=== PATIENT | female | born 1940 | race Caucasian/White ===

== ENCOUNTER 2020-11-13 05:27 | Inpatient (IN) ==
[2020-11-13] MEDS ORDERED: ACETAMINOPHEN 500 MG TAB PO STA (05:38)
[2020-11-13] MEDS ORDERED: LIDOCAINE 5% 1 PATCH TD STA (05:38)
--- NOTE | 2020-11-13 05:45 | Emergency Department Note ---
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 space occupying lesions are seen. Tellez-white matter differentiation is preserved. 1.2 x 0.7 cm slightly hyperattenuating asymmetrical lesion is seen within right basal ganglia (series 2 image 16). Mild diffuse atrophic changes of brain parenchyma are seen. Prominent hyperostosis of the calvarium seen. No definite acute depressed skull fractures demonstrated. Visualized paranasal sinuses and mastoid air cells are patent and well-aerated. IMPRESSION: No definite acute intracranial hemorrhage, no midline shift or space occupying lesions. Questionable hyperattenuating lesion at the right basal ganglia, incompletely evaluated on this exam. Further evaluation with MRI of the brain is suggested. Atrophic changes of brain parenchyma. Prominent cranial hyperostosis, most likely benign however sometimes this condition could be associated with systemic disease. ACT 112: Negative or not required by law. The above report was generated using voice recognition software. It may contain grammatical, syntax or spelling errors. Electronically signed by: Mariah German DO 11/13/2020 7:35 AM Discharge Plan Visit Data Chief Complaint: Rib Injury/Pain Stated Complaint: ABDOMINAL PAIN ED Provider: Reggie Dotson Discharge Problem: Abdominal pain, acute, right upper quadrant, Elev transaminase/LDH, Metastatic disease Patient Disposition: Admitted As Inpatient Discharge Instructions Interventions: ED Discharge Assessment Last Done: 11/13/20 09:48
[2020-11-13] MEDS ORDERED: SODIUM CHLORIDE 0.9% 1000ML 500 ML IV ONE (05:53)
[2020-11-13 06:28] LABS: iSTAT Creatinine 0.6 mg/dl (0.6-1.3); iSTAT Hemoglobin 10.9 g/dl (12.0-16.0); iSTAT Ionized Calcium 1.25 mmol/l (1.12-1.32); iSTAT Potassium 4.1 mmol/L (3.3-5.0)
[2020-11-13 06:35] LABS: Basophils # (auto) 0.03 K/uL (0-0.2); Basophils % (auto) 0.3 %; Eosinophils # (auto) 0.06 K/uL (0-0.5); Eosinophils % (auto) 0.5 %; Hemoglobin 11.5 g/dL (12.0-16.0); Immature Granulocytes # (auto) 0.09 K/uL (0.00-0.02); Immature Granulocytes % (auto) 0.8 %; Lymphocytes # (auto) 1.07 K/uL (1.2-3.4); Lymphocytes % (auto) 9.1 %; Mean Corpuscular Hemoglobin 30.3 pg (25-34); Mean Corpuscular Hgb Conc 32.9 g/dL (32-36); Mean Corpuscular Volume 92.3 fL (80-100); Mean Platelet Volume 9.6 fL (7.4-10.4); Monocytes # (auto) 1.18 K/uL (0.11-0.59); Neutrophils # (auto) 9.39 K/uL (1.4-6.5); Neutrophils % (auto) 79.3 %; Platelet Count 526 K/uL (130-400); RDW Coefficient of Variation 12.8 % (11.5-14.5); RDW Standard Deviation 43.3 fL (36.4-46.3); Red Blood Count 3.79 M/uL (4.2-5.4); White Blood Count 11.82 K/uL (4.8-10.8)
[2020-11-13] MEDS ORDERED: OPTIRAY 320 100ml IV ONE (06:42)
[2020-11-13 06:47] LABS: Partial Thromboplastin Ratio 0.9; Partial Thromboplastin Time 24.3 Seconds (21.0-31.0)
[2020-11-13] MEDS ORDERED: OPTIRAY 350 500ml IV ONE (06:49)
[2020-11-13 06:53] LABS: Alanine Aminotransferase 546 U/L (12-78); Albumin Level 2.8 gm/dl (3.4-5.0); Aspartate Aminotransferase 278 U/L (15-37); BUN Creatinine Ratio 16.2 (10-20); Blood Urea Nitrogen 11 mg/dl (7-18); Calcium 9.9 mg/dl (8.5-10.1); Carbon Dioxide 28 mmol/L (21-32); Chloride 100 mmol/L (98-107); Creatinine Clr Calc Pharmacy 60.9 ml/min; Est GFR (African American) 94.8 ml/min; Est GFR (Non-African American) 81.8 ml/min; Glucose 104 mg/dl (70-99); Lipase 318 U/L (73-393); Sodium 133 mmol/L (136-145)
[2020-11-13 06:58] LABS: Albumin Globulin Ratio 0.7 (0.9-2); Alkaline Phosphatase 538 U/L (45-117); Bilirubin,Total 1.3 mg/dl (0.2-1); Creatine Kinase 64 U/L (26-192); Creatine Kinase MB < 1.0 ng/ml (0.5-3.6); Globulin 4.3 gm/dl (2.5-4.0); Total Protein 7.1 gm/dl (6.4-8.2); Troponin I < 0.015 ng/ml (0-0.045)
--- NOTE | 2020-11-13 07:09 | CT Scan Report ---
CT ANGIOGRAPHY OF THE CHEST, PULMONARY EMBOLUS PROTOCOL CLINICAL HISTORY: Chest Pain, eval for PE COMPARISON STUDY: Chest CT August 04, 2007. TECHNIQUE: Following IV administration of 116 mL of Optiray, helical axial images of the chest were o btained utilizing the pulmonary embolus protocol. Maximal intensity projections and sagittal and cor onal reformats were viewed on an independent 3D workstation. IV contrast was administered without co mplication. Automated exposure control was utilized for the study. A dose lowering technique was ut ilized adhering to the principles of ALARA. FINDINGS: No pulmonary emboli are identified. There is no thoracic aortic dissection. Moderate cardi omegaly is noted. There is no pericardial effusion. There is an enlarged left upper mediastinal lymph node on axial image 231 of that measures 1.4 cm. There is no pneumothorax. There is no consolidation to suggest pneumonia. A 7 mm lingular nodule on image [address] of August 04, 2007. Subpl eural opacities favor atelectasis. Note is made of numerous lytic lesions within the bony thorax, inc luding a 2.4 cm lesion within the left fifth rib. A lytic lesion within the inferior right scapula is noted. There is a lytic lesion within the left aspect of the T7 vertebral body. The abdomen and pelv is will be reported separately. The study better depicted in multiple hepatic masses. There are promi nent cardiophrenic angle lymph nodes. IMPRESSION: 1. No pulmonary emboli identified. 2. Multiple hepatic masses consistent with a neoplastic process, better depicted on the CT of the abd omen and pelvis which will be reported separately. Numerous lytic skeletal metastases, a 7 mm lingula r metastasis and a pathologic left superior mediastinal lymph node. ACT 112: Negative or not required by law. Electronically signed by: Braden Andersen M.D. 11/13/2020 7:07 AM
--- NOTE | 2020-11-13 07:26 | CT Scan Report ---
CT OF THE ABDOMEN AND PELVIS WITH CONTRAST CLINICAL HISTORY: Right upper quadrant abdominal pain. COMPARISON STUDY: None. TECHNIQUE: Following IV administration of 116 mL of Optiray, axial images of the abdomen and pelvis w ere obtained from the lung bases to the proximal femurs. Images were reviewed in the axial, sagittal, and coronal planes. IV contrast was administered without complication. Automated exposure control w as utilized for the study. A dose lowering technique was utilized adhering to the principles of SUZE Sanders. CT DOSE: 1881.01 mGy.cm FINDINGS: A 7 mm lingular nodule is noted. No pneumatosis, free air or portal venous gas is present. There is trace perihepatic ascites. Note is made of a large hypodense mass centered within the anteri or segment of the right hepatic lobe and the medial segment of the left hepatic lobe that measures 8. 5 x 7.2 cm. There are numerous smaller satellite lesions. Note is made of moderate intrahepatic bilia ry ductal dilatation, greater within the left hepatic lobe. There is a 4 mm calculus within the dista l common bile duct. There is no pancreatic ductal dilatation. There is narrowing of the portal vein w hich remains patent. Numerous partially necrotic portacaval and gayatri hepatis lymph nodes are noted. There are also multiple pathologic retroperitoneal lymph nodes. There are gallstones within the gallb ladder. The spleen and adrenal glands are unremarkable. A 7 mm cystic lesion within the uncinate proc ess of the pancreas is noted. There is no hydronephrosis. There is no evidence for a bowel obstructio n. There is a small cyst within the right ovary. There is mild wall thickening of the anterior bladde r. There is no evidence for acute appendicitis. Multiple lytic skeletal lesions are noted, including a lytic lesion within the right ischial tuberosity as well as a 2.2 cm lytic lesion within the right iliac bone. IMPRESSION: 1. Large hypodense hepatic mass, measuring 8.5 x 7.2 cm, with numerous satellite lesions. 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 Moderate in trahepatic biliary ductal dilatation, greater within the left hepatic lobe. 2. Numerous pathologic lymph nodes and lytic skeletal metastases, as described above. 3. 4 mm calculus within the distal common bile duct. 4. Cholelithiasis. ACT 112: Negative or not required by law. Electronically signed by: Braden Andersen M.D. 11/13/2020 7:25 AM
--- NOTE | 2020-11-13 07:36 | CT Scan Report ---
CT head/brain wo con CLINICAL HISTORY: Pt c/o AMS COMPARISON STUDY: No previous studies for comparison. TECHNIQUE: Axial CT of the brain is performed from the vertex to the skull base. IV contrast was not administered for this examination. A dose lowering technique was utilized adhering to the principles of ALARA. CT DOSE: FINDINGS: No definite acute intracranial hemorrhage, no midline shift or space occupying lesions are seen. Tellez-white matter differentiation is preserved. 1.2 x 0.7 cm slightly hyperattenuating asymmetrical lesion is seen within right basal ganglia (series 2 image 16). Mild diffuse atrophic changes of brain parenchyma are seen. Prominent hyperostosis of the calvarium seen. No definite acute depressed skull fractures demonstrate d. Visualized paranasal sinuses and mastoid air cells are patent and well-aerated. IMPRESSION: No definite acute intracranial hemorrhage, no midline shift or space occupying lesions. Questionable hyperattenuating lesion at the right basal ganglia, incompletely evaluated on this exam. Further evaluation with MRI of the brain is suggested. Atrophic changes of brain parenchyma. Prominent cranial hyperostosis, most likely benign however sometimes this condition could be associat ed with systemic disease. ACT 112: Negative or not required by law. The above report was generated using voice recognition software. It may contain grammatical, syntax o r spelling errors. Electronically signed by: Mariah German DO 11/13/2020 7:35 AM
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
--- NOTE | 2020-11-13 09:54 | Gastrointestinal Consultation ---
Date of Consultation November 13, 2020 Assessment & Plan (1) Common bile duct stone: 80 year old female w/ RUQ pain, weight loss and food aversion w/ large hepatic mass w/ pathologic lymph nodes and lytic skeletal metastases concerning for liver primary with metastatic disease. CT also raising concern for retained biliary stones Proceed with admission Clear liquids today Please start Cipro prophylaxis (I had issues placing orders as chart is in transfer mode) NPO after midnight for EUS/ERCP IV analgesia IV maintenance fluids (2) Liver mass: Supervising Physician Co-Signing Physician Notes I saw and evaluated the patient in the emergency room. We were consulted for history of abdominal pain and abnormal imaging. The patient notes that she has had worsening symptoms over the past 1 to 2 weeks. Imaging shows a couple interesting findings to include a common bile duct stone in addition to numerous hepatic masses of unclear etiology. The patient does report having a prior colonoscopy but does not recall the date. Physical examination Elderly appearing female in no obvious distress Mild right upper quadrant tenderness Impression: Patient presenting for evaluation of symptoms related to choledocholithiasis. In addition she appears to have numerous masses within the liver. Given this we will proceed with ERCP for stone removal and endoscopic ultrasound to sample of the liver masses. I have discussed the risks and benefits of the procedures with the patient to include bleeding, infection, perforation, pancreatitis, failed biliary cannulation, insufficient cellularity, and need for follow-up studies. We will try to make arrangements for the procedures while the patient is in the hospital. History of Present Illness Reason for Consultation: liver mass Requesting Physician: Gary Attending Physician: Gary History of Present Illness 80 year old female with history of HTN, dyslipidemia and alzhemiers who was admitted through the EDwith RUQ pain ongoing fo about 1-3 weeks. Pt was seen and evaluated, chart reviewed. Family at bedside. Pt is a vague historian. Notes unintentional weight loss without GI discomfort for about 3/4 months but in the last month has had quicker weight loss, abd pain and decreased appetite. Currently pain is resolved. Denies nausea/vomiting. No GERD. Denies dysphagia. Bowels unchanged. No black or bloody stools. No fever, chills, CP, SOB. CTAP concerning for a large 8cm hepatic mass, pathologic lymph nodes and lytic skeletal metastases and CBD stone Head CT concerning for possible lesion at R basal ganglia recommending MRI. 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 HLD (hyperlipidemia) Hypertension Mild cognitive impairment Surgical History History of History of cataract extraction with lens replacement History of surgery on wrist History of tonsillectomy and adenoidectomy Family History Father Alzheimer disease Coronary heart disease Myocardial infarction, Onset Age: 70 PVD (peripheral vascular disease) with claudication Mother Dementia Smoker Social History Smoking Status: Never smoker Second Hand Exposure: No; Do You Dip or Chew Tobacco: No; Tobacco Cessation Education Requested by Patient: No Hx Alcohol Use: Yes Alcohol type: wine Hx Substance Use: No Preferred Language: Romanian Communication Ability: Effective Hearing Ability: Normal Stone Rougher Required: No Beliefs That Will Affect Care: None marital status: Current Living Situation: Spouse current occupational status: retired Other Information That Helps Us Care for You: No Feels Safe at Home: Yes Safety Concerns: Feels Safe At This Time Assistive Devices: Glasses Review of Systems Review of Systems: All systems reviewed & are unremarkable except as noted in HPI & below Physical Exam Constitutional: WD/WN, vitals as above Neck: trachea midline, no thyromegaly Respiratory: normal respiratory effort, lungs clear to auscultation Cardiovascular: RRR, no murmur, no edema Gastrointestinal (Abdomen): normal bowel sounds, soft, nontender, no hepatosplenomegaly Skin: no rashes, warm and dry Results & Data ([facility]) Vital Signs (Past 12 Hours) Vital Signs Temp Pulse Pulse Resp BP BP Pulse Ox 11/13/20 08:00 82 18 117/64 98 11/13/20 06:46 85 16 136/74 98 11/13/20 06:16 81 16 97 11/13/20 05:38 37.1 C 94 H 18 149/80 H 97 Laboratory Results 11/13/20 11/13/20 11/13/20 Range/Units 08:57 07:05 06:15 WBC (4.8-10.8) K/uL RBC (4.2-5.4) M/uL Hgb (12.0-16.0) g/dL POC Hgb 10.9 L (12.0-16.0) g/dl Hct (37-47) % POC Hct 32 L (37-47) % MCV (80-100) fL MCH (25-34) pg MCHC (32-36) g/dL RDW Std Deviation (36.4-46.3) fL RDW Coeff of Rhianna (11.5-14.5) % Plt Count (130-400) K/uL MPV (7.4-10.4) fL Immature Gran % (Auto) % Neut % (Auto) % Lymph % (Auto) % [place] % (Auto) % Eos % (Auto) % Baso % (Auto) % Neut # (Auto) (1.4-6.5) K/uL Lymph # (Auto) (1.2-3.4) K/uL [place] # (Auto) (0.11-0.59) K/uL Eos # (Auto) (0-0.5) K/uL Baso # (Auto) (0-0.2) K/uL Immature Gran # (Auto) (0.00-0.02) K/uL APTT (21.0-31.0) Seconds PTT Ratio POC Sodium 133 L (135-144) mmol/L Sodium (136-145) mmol/L POC Potassium 4.1 (3.3-5.0) mmol/L Potassium (3.5-5.1) mmol/L POC Chloride 96 L (101-112) mmol/L Chloride (98-107) mmol/L Carbon Dioxide (21-32) mmol/L POC Total CO2 24 (24-31) mmol/L Anion Gap (3-11) POC Anion Gap 17.0 (16-25) mmol/L POC BUN 12 (7-18) mg/dl BUN (7-18) mg/dl Creatinine (0.6-1.2) mg/dl POC Creatinine 0.6 (0.6-1.3) mg/dl Est Cr Clr Drug Dosing ml/min Est GFR ( Amer) ml/min Est GFR (Non-Af Amer) ml/min BUN/Creatinine Ratio (10-20) Glucose (70-99) mg/dl POC Glucose (other) 111 H (70-99) mg/dl Lactate 1.9 (0.4-2.0) mmol/L Calcium (8.5-10.1) mg/dl POC Ioniz Calcium Frandy 1.25 (1.12-1.32) mmol/l Total Bilirubin (0.2-1) mg/dl AST (15-37) U/L ALT (12-78) U/L Alkaline Phosphatase (45-117) U/L Total Creatine Kinase (26-192) U/L CK-MB (CK-2) (0.5-3.6) ng/ml CK/CKMB % Calc Troponin I (0-0.045) ng/ml Total Protein (6.4-8.2) gm/dl Albumin (3.4-5.0) gm/dl Globulin (2.5-4.0) gm/dl Albumin/Globulin Ratio (0.9-2) Lipase (73-393) U/L Procalcitonin 0.22 (0-0.5) ng/ml COVID-19 Eval Order SARS-CoV-2 (PCR) (Negative) Hepatitis A IgM Ab Hep Bs Antigen Hep B Core IgM Ab Hepatitis C Antibody 11/13/20 11/13/20 11/13/20 Range/Units 06:14 06:14 05:58 WBC (4.8-10.8) K/uL RBC (4.2-5.4) M/uL Hgb (12.0-16.0) g/dL POC Hgb (12.0-16.0) g/dl Hct (37-47) % POC Hct (37-47) % MCV (80-100) fL MCH (25-34) pg MCHC (32-36) g/dL RDW Std Deviation (36.4-46.3) fL RDW Coeff of Rhianna (11.5-14.5) % Plt Count (130-400) K/uL MPV (7.4-10.4) fL Immature Gran % (Auto) % Neut % (Auto) % Lymph % (Auto) % [place] % (Auto) % Eos % (Auto) % Baso % (Auto) % Neut # (Auto) (1.4-6.5) K/uL Lymph # (Auto) (1.2-3.4) K/uL [place] # (Auto) (0.11-0.59) K/uL Eos # (Auto) (0-0.5) K/uL Baso # (Auto) (0-0.2) K/uL Immature Gran # (Auto) (0.00-0.02) K/uL APTT (21.0-31.0) Seconds PTT Ratio POC Sodium (135-144) mmol/L Sodium (136-145) mmol/L POC Potassium (3.3-5.0) mmol/L Potassium (3.5-5.1) mmol/L POC Chloride (101-112) mmol/L Chloride (98-107) mmol/L Carbon Dioxide (21-32) mmol/L POC Total CO2 (24-31) mmol/L Anion Gap (3-11) POC Anion Gap (16-25) mmol/L POC BUN (7-18) mg/dl BUN (7-18) mg/dl Creatinine (0.6-1.2) mg/dl POC Creatinine (0.6-1.3) mg/dl Est Cr Clr Drug Dosing ml/min Est GFR ( Amer) ml/min Est GFR (Non-Af Amer) ml/min BUN/Creatinine Ratio (10-20) Glucose (70-99) mg/dl POC Glucose (other) (70-99) mg/dl Lactate (0.4-2.0) mmol/L Calcium (8.5-10.1) mg/dl POC Ioniz Calcium Frandy (1.12-1.32) mmol/l Total Bilirubin (0.2-1) mg/dl AST (15-37) U/L ALT (12-78) U/L Alkaline Phosphatase (45-117) U/L Total Creatine Kinase (26-192) U/L CK-MB (CK-2) (0.5-3.6) ng/ml CK/CKMB % Calc Troponin I (0-0.045) ng/ml Total Protein (6.4-8.2) gm/dl Albumin (3.4-5.0) gm/dl Globulin (2.5-4.0) gm/dl Albumin/Globulin Ratio (0.9-2) Lipase (73-393) U/L Procalcitonin (0-0.5) ng/ml COVID-19 Eval Order Covid19 at [facility] SARS-CoV-2 (PCR) NEGATIVE (Negative) Hepatitis A IgM Ab Pending Hep Bs Antigen Hep B Core IgM Ab Pending Hepatitis C Antibody 11/13/20 11/13/20 11/13/20 Range/Units 05:58 05:58 05:58 WBC (4.8-10.8) K/uL RBC (4.2-5.4) M/uL Hgb (12.0-16.0) g/dL POC Hgb (12.0-16.0) g/dl Hct (37-47) % POC Hct (37-47) % MCV (80-100) fL MCH (25-34) pg MCHC (32-36) g/dL RDW Std Deviation (36.4-46.3) fL RDW Coeff of Rhianna (11.5-14.5) % Plt Count (130-400) K/uL MPV (7.4-10.4) fL Immature Gran % (Auto) % Neut % (Auto) % Lymph % (Auto) % [place] % (Auto) % Eos % (Auto) % Baso % (Auto) % Neut # (Auto) (1.4-6.5) K/uL Lymph # (Auto) (1.2-3.4) K/uL [place] # (Auto) (0.11-0.59) K/uL Eos # (Auto) (0-0.5) K/uL Baso # (Auto) (0-0.2) K/uL Immature Gran # (Auto) (0.00-0.02) K/uL APTT 24.3 (21.0-31.0) Seconds PTT Ratio 0.9 POC Sodium (135-144) mmol/L Sodium 133 L (136-145) mmol/L POC Potassium (3.3-5.0) mmol/L Potassium 4.0 (3.5-5.1) mmol/L POC Chloride (101-112) mmol/L Chloride 100 (98-107) mmol/L Carbon Dioxide 28 (21-32) mmol/L POC Total CO2 (24-31) mmol/L Anion Gap 5.0 (3-11) POC Anion Gap (16-25) mmol/L POC BUN (7-18) mg/dl BUN 11 (7-18) mg/dl Creatinine 0.70 (0.6-1.2) mg/dl POC Creatinine (0.6-1.3) mg/dl Est Cr Clr Drug Dosing 60.9 ml/min Est GFR ( Amer) 94.8 ml/min Est GFR (Non-Af Amer) 81.8 ml/min BUN/Creatinine Ratio 16.2 (10-20) Glucose 104 H (70-99) mg/dl POC Glucose (other) (70-99) mg/dl Lactate (0.4-2.0) mmol/L Calcium 9.9 (8.5-10.1) mg/dl POC Ioniz Calcium Frandy (1.12-1.32) mmol/l Total Bilirubin 1.3 H (0.2-1) mg/dl AST 278 H (15-37) U/L ALT 546 H (12-78) U/L Alkaline Phosphatase 538 H (45-117) U/L Total Creatine Kinase 64 (26-192) U/L CK-MB (CK-2) < 1.0 (0.5-3.6) ng/ml CK/CKMB % Calc TNP Troponin I < 0.015 (0-0.045) ng/ml Total Protein 7.1 (6.4-8.2) gm/dl Albumin 2.8 L (3.4-5.0) gm/dl Globulin 4.3 H (2.5-4.0) gm/dl Albumin/Globulin Ratio 0.7 L (0.9-2) Lipase 318 (73-393) U/L Procalcitonin (0-0.5) ng/ml COVID-19 Eval Order SARS-CoV-2 (PCR) (Negative) Hepatitis A IgM Ab Hep Bs Antigen Pending Hep B Core IgM Ab Hepatitis C Antibody Pending 11/13/20 Range/Units 05:58 WBC 11.82 H (4.8-10.8) K/uL RBC 3.79 L (4.2-5.4) M/uL Hgb 11.5 L (12.0-16.0) g/dL POC Hgb (12.0-16.0) g/dl Hct 35.0 L (37-47) % POC Hct (37-47) % MCV 92.3 (80-100) fL MCH 30.3 (25-34) pg MCHC 32.9 (32-36) g/dL RDW Std Deviation 43.3 (36.4-46.3) fL RDW Coeff of Rhianna 12.8 (11.5-14.5) % Plt Count 526 H (130-400) K/uL MPV 9.6 (7.4-10.4) fL Immature Gran % (Auto) 0.8 % Neut % (Auto) 79.3 % Lymph % (Auto) 9.1 % [place] % (Auto) 10.0 % Eos % (Auto) 0.5 % Baso % (Auto) 0.3 % Neut # (Auto) 9.39 H (1.4-6.5) K/uL Lymph # (Auto) 1.07 L (1.2-3.4) K/uL [place] # (Auto) 1.18 H (0.11-0.59) K/uL Eos # (Auto) 0.06 (0-0.5) K/uL Baso # (Auto) 0.03 (0-0.2) K/uL Immature Gran # (Auto) 0.09 H (0.00-0.02) K/uL APTT (21.0-31.0) Seconds PTT Ratio POC Sodium (135-144) mmol/L Sodium (136-145) mmol/L POC Potassium (3.3-5.0) mmol/L Potassium (3.5-5.1) mmol/L POC Chloride (101-112) mmol/L Chloride (98-107) mmol/L Carbon Dioxide (21-32) mmol/L POC Total CO2 (24-31) mmol/L Anion Gap (3-11) POC Anion Gap (16-25) mmol/L POC BUN (7-18) mg/dl BUN (7-18) mg/dl Creatinine (0.6-1.2) mg/dl POC Creatinine (0.6-1.3) mg/dl Est Cr Clr Drug Dosing ml/min Est GFR ( Amer) ml/min Est GFR (Non-Af Amer) ml/min BUN/Creatinine Ratio (10-20) Glucose (70-99) mg/dl POC Glucose (other) (70-99) mg/dl Lactate (0.4-2.0) mmol/L Calcium (8.5-10.1) mg/dl POC Ioniz Calcium Frandy (1.12-1.32) mmol/l Total Bilirubin (0.2-1) mg/dl AST (15-37) U/L ALT (12-78) U/L Alkaline Phosphatase (45-117) U/L Total Creatine Kinase (26-192) U/L CK-MB (CK-2) (0.5-3.6) ng/ml CK/CKMB % Calc Troponin I (0-0.045) ng/ml Total Protein (6.4-8.2) gm/dl Albumin (3.4-5.0) gm/dl Globulin (2.5-4.0) gm/dl Albumin/Globulin Ratio (0.9-2) Lipase (73-393) U/L Procalcitonin (0-0.5) ng/ml COVID-19 Eval Order SARS-CoV-2 (PCR) (Negative) Hepatitis A IgM Ab Hep Bs Antigen Hep B Core IgM Ab Hepatitis C Antibody
[2020-11-13 09:57] LABS: Hepatitis B Surf Ag Rflx Conf Neg (Neg)
[2020-11-13] MEDS ORDERED: POLYETHYLENE (MIRALAX) 17 GM PACK PO PRN (10:10)
[2020-11-13] MEDS ORDERED: CHOLECALCIFEROL 1,000 UNITS 25 MCG TAB PO SCH (10:10)
[2020-11-13] MEDS ORDERED: ALUMINUM/MAGNESIUM SUSP 30 ML UDC PO PRN (10:10)
[2020-11-13] MEDS ORDERED: ONDANSETRON INJ 2 MG/ML 2 ML VIAL IV PRN (10:10)
[2020-11-13] MEDS ORDERED: traMADol HCL 50 MG TABLET PO PRN (10:10)
[2020-11-13] MEDS ORDERED: ACETAMINOPHEN 325 MG TAB PO PRN (10:10)
[2020-11-13] MEDS ORDERED: MAGNESIUM HYDROXIDE SUSP 30 ML UDC PO PRN (10:10)
[2020-11-13] MEDS ORDERED: PIPERACILL/TAZOBAC CONSULT ACTIVE PRN (10:10)
[2020-11-13 10:26] LABS: Hepatitis C IgG 13Yrs+Old_Rflx Neg (Neg)
[2020-11-13] MEDS ORDERED: PIPERACILLIN/TAZOBACTAM 3.375 GM in DEXTROSE 5% 100 ML IV ONE (11:00)
[2020-11-13] MEDS ORDERED: SODIUM CHLORIDE 0.9% 1000ML 1,000 ML IV SCH (11:15)
--- NOTE | 2020-11-13 11:25 | Electrocardiogram Report ---
Test Reason : Blood Pressure : / mmHG Vent. Rate : 086 BPM Atrial Rate : 086 BPM P-R Int : 150 ms QRS Dur : 082 ms QT Int : 354 ms P-R-T Axes : 051 -20 018 degrees QTc Int : 423 ms Normal sinus rhythm Moderate voltage criteria for LVH, may be normal variant RSR' or QR pattern in V1 suggests right ventricular conduction delay Borderline ECG When compared with ECG of 04-AUG-2007 11:04, No significant change was found Confirmed by Bradley Lion ([id number]) on 11/13/2020 11:25:25 AM Referred By: Heidy Dudley Confirmed By:Bradley Lion
[2020-11-13 12:33] LABS: Appearance Urine Clear (Clear); Bacteria Urine Automated Negative (Negative); Blood Urine Negative (Negative); Color Urine Dark Yellow; Glucose Urine UA Negative (Negative); Ketones Urine Negative (Negative); Leukocyte Esterase Urine Trace (Negative); Nitrite Urine Negative (Negative); Protein Urine Negative (Negative); RBC Urine Automated 0-4 /hpf (0-4); Specific Gravity Urine > 1.045 (1.000-1.030); Urobilinogen Urine Negative (Negative); pH Urine 6.5 (4.5-7.5)
[2020-11-13] MEDS ORDERED: GADOBUTROL 65ML VIAL IV ONE (12:38)
[2020-11-13 12:40] LABS: Bilirubin Urine 1+ (Negative)
[2020-11-13 12:52] LABS: Creatinine Urine Random 51.6 mg/dl
[2020-11-13] MEDS: DONEPEZIL HCL 5 MG TAB PO SCH (13:20)
[2020-11-13] MEDS: PANTOprazole 40 MG TAB PO SCH (13:20)
[2020-11-13] MEDS: lisinopril 10 MG TAB PO SCH (13:20)
[2020-11-13] MEDS: MEMANTINE HCL 5 MG TAB PO SCH ×2 (13:20→20:58)
[2020-11-13] MEDS: FOLIC ACID 1 MG TAB PO SCH (13:20)
[2020-11-13] MEDS: FAMOTIDINE 20 MG TAB PO SCH ×2 (13:20→20:58)
--- NOTE | 2020-11-13 14:04 | Anesthesiology Consultation ---
Date of Service November 13, 2020obt The patient has a PMH of hepatic mass with metastases, Alzheimer's dementia, dissecting vertebral artery, and dyslipidemia. She is currently hyponatremic. The medicine team is requesting that she undergo an ERCP/EUS to obtain a diagnosis of her liver mass. Nephrology has been consulted to manage her hyponatremia. It is a low risk procedure but will be a general anesthetic. If medicine/GI deem the procedure medically necessary than the patient may proceed. The patient will be evaluated on the day of the procedure by the anesthesiologist. Anesthesia consent will need to be obtained from her . Assessment & Plan (1) Encounter for pre-operative examination: Chart Review Chart Review: Acceptable Risk for Surgery (if medically necessary, patient to be evaluated day of procedure by anesthesiologist) and Patient NOT seen in Pre Admission Testing Consults Requested none medicine, GI, and nephrology are following the patient History Surgery Operation Date: 11/14/20 12:20 Proposed Procedures p Endoscopic Retrograde Cholangiopancreato - Sandi Fyre DO s Endoscopic Ultrasonography Upper - Sandi Frye DO Height/Weight Height: 5 ft 3 in Weight: 64 kg Allergies Allergy/AdvReac Type Severity Reaction Status Date / Time adhesive tape AdvReac Unknown Verified 11/13/20 08:17 Medications Home Medications Medication Instructions Recorded Confirmed Last Taken cholecalciferol (vitamin D3) 25 mcg PO DAILY 11/13/20 11/13/20 Unknown donepezil 5 mg PO DAILY 11/13/20 11/13/20 11/12/20 famotidine 20 mg PO BID 11/13/20 11/13/20 Unknown folic acid 1 mg PO DAILY 11/13/20 11/13/20 Unknown lisinopril 10 mg PO DAILY 11/13/20 11/13/20 11/12/20 memantine 5 mg PO BID 11/13/20 11/13/20 11/12/20 omeprazole 40 mg PO DAILY 11/13/20 11/13/20 Unknown Active Medications Generic Name Dose Route Start Last Admin Trade Name Freq PRN Reason Stop Dose Admin Donepezil HCl 5 mg 11/13/20 10:10 11/13/20 13:20 Donepezil Hcl 5 Mg Tab PO 12/13/20 10:09 5 mg DAILY JAGDISH Administration Famotidine 20 mg 11/13/20 10:10 11/13/20 13:20 Famotidine 20 Mg Tab PO 12/13/20 10:09 20 mg BID JAGDISH Administration Folic Acid 1 mg 11/13/20 10:10 11/13/20 13:20 Folic Acid 1 Mg Tab PO 12/13/20 10:09 1 mg DAILY JAGDISH Administration Sodium Chloride 1,000 mls @ 80 mls/hr 11/13/20 11:15 11/13/20 11:29 Nss 1000ml IV 11/13/20 23:44 80 mls/hr .[id number] JAGDISH Administration Lisinopril 10 mg 11/13/20 10:10 11/13/20 13:20 Lisinopril 10 Mg Tab PO 12/13/20 10:09 10 mg DAILY JAGDISH Administration Memantine 5 mg 11/13/20 10:10 11/13/20 13:20 Memantine Hcl 5 Mg Tab PO 12/13/20 10:09 5 mg BID JAGDISH Administration Pantoprazole Sodium 40 mg 11/13/20 10:10 11/13/20 13:20 Pantoprazole 40 Mg Tab PO 12/13/20 10:09 40 mg DAILY JAGDISH Administration Past Medical History Medical History Anemia 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 HLD (hyperlipidemia) Hypertension Liver mass Metastatic disease Mild cognitive impairment Past Family History Family History Father Alzheimer disease Coronary heart disease Myocardial infarction, Onset Age: 70 PVD (peripheral vascular disease) with claudication Mother Dementia Smoker Past Surgical History Surgical History History of History of cataract extraction with lens replacement History of surgery on wrist History of tonsillectomy and adenoidectomy Social History Smoking Status: Never smoker Do You Dip or Chew Tobacco: No Hx Alcohol Use: Yes Alcohol type: wine alcohol intake frequency: 0-2 drinks per day Hx Substance Use: No substance use type: does not use Physical Exam Vital Signs Last Vital Signs Temp 36.4 C L 11/13/20 10:14 Pulse 78 11/13/20 10:45 Resp 18 11/13/20 10:14 BP 150/73 H 11/13/20 10:14 Pulse Ox 98 11/13/20 10:14 Testing Laboratory Results 11/13/20 05:58 11/13/20 05:58 APTT 24.3 Seconds (21.0-31.0) 11/13/20 05:58 Urine Color Dark Yellow 11/13/20 12:18 Urine Appearance Clear (Clear) 11/13/20 12:18 Urine pH 6.5 (4.5-7.5) 11/13/20 12:18 Ur Specific [place] > 1.045 (1.000-1.030) H 11/13/20 12:18 Urine Protein Negative (Negative) 11/13/20 12:18 Urine Glucose (UA) Negative (Negative) 11/13/20 12:18 Urine Ketones Negative (Negative) 11/13/20 12:18 Urine Nitrite Negative (Negative) 11/13/20 12:18 Ur Leukocyte Esterase Trace (Negative) H 11/13/20 12:18 Urine WBC (Auto) 5-10 /hpf (0-5) H 11/13/20 12:18 Urine RBC (Auto) 0-4 /hpf (0-4) 11/13/20 12:18 U Hyaline Cast (Auto) 1-5 /lpf (0-5) 11/13/20 12:18 U Epithel Cells (Auto) 10-20 /lpf (0-5) H 11/13/20 12:18 Urine Bacteria (Auto) Negative (Negative) 11/13/20 12:18 11/13/20 06:15 POC Glucose (other) 111 H Electrocardiogram Date: 11/13/20 Findings: + NSR @ (86) right ventricular conduction delay, moderate LVH Other Testing CT ANGIOGRAPHY OF THE CHEST, PULMONARY EMBOLUS PROTOCOL CLINICAL HISTORY: Chest Pain, eval for PE COMPARISON STUDY: Chest CT August 04, 2007. TECHNIQUE: Following IV administration of 116 mL of Optiray, helical axial images of the chest were obtained utilizing the pulmonary embolus protocol. Maximal intensity projections and sagittal and coronal reformats were viewed on an independent 3D workstation. IV contrast was administered without complication. Automated exposure control was utilized for the study. A dose lowering technique was utilized adhering to the principles of ALARA. FINDINGS: No pulmonary emboli are identified. There is no thoracic aortic dissection. Moderate cardiomegaly is noted. There is no pericardial effusion. There is an enlarged left upper mediastinal lymph node on axial image 231 of that measures 1.4 cm. There is no pneumothorax. There is no consolidation to suggest pneumonia. A 7 mm lingular nodule on image [address] of August 04, 2007. Subpleural opacities favor atelectasis. Note is made of numerous lytic lesions within the bony thorax, including a 2.4 cm lesion within the left fifth rib. A lytic lesion within the inferior right scapula is noted. There is a lytic lesion within the left aspect of the T7 vertebral body. The abdomen and pelvis will be reported separately. The study better depicted in multiple hepatic masses. There are prominent cardiophrenic angle lymph nodes. IMPRESSION: 1. No pulmonary emboli identified. 2. 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 Numerous lytic skeletal metastases, a 7 mm lingular metastasis and a pathologic left superior mediastinal lymph node. ACT 112: Negative or not required by law. Electronically signed by: Braden Andersen M.D. 11/13/2020 7:07 AM Dictated: 11/13/20655Transcribed: 11/13/20655 CT head/brain wo con CLINICAL HISTORY: Pt c/o AMS COMPARISON STUDY: No previous studies for comparison. TECHNIQUE: Axial CT of the brain is performed from the vertex to the skull base. IV contrast was not administered for this examination. A dose lowering technique was utilized adhering to the principles of ALARA. CT DOSE: FINDINGS: No definite acute intracranial hemorrhage, no midline shift or space occupying lesions are seen. Tellez-white matter differentiation is preserved. 1.2 x 0.7 cm slightly hyperattenuating asymmetrical lesion is seen within right basal ganglia (series 2 image 16). Mild diffuse atrophic changes of brain parenchyma are seen. Prominent hyperostosis of the calvarium seen. No definite acute depressed skull fractures demonstrated. Visualized paranasal sinuses and mastoid air cells are patent and well-aerated. IMPRESSION: No definite acute intracranial hemorrhage, no midline shift or space occupying lesions. Questionable hyperattenuating lesion at the right basal ganglia, incompletely evaluated on this exam. Further evaluation with MRI of the brain is suggested. Atrophic changes of brain parenchyma. Prominent cranial hyperostosis, most likely benign however sometimes this condition could be associated with systemic disease. ACT 112: Negative or not required by law. The above report was generated using voice recognition software. It may contain grammatical, syntax or spelling errors. Electronically signed by: Mariah German DO 11/13/2020 7:35 AM Dictated: 11/13/20724Transcribed: 11/13/20724
--- NOTE | 2020-11-13 14:09 | Consultation Report ---
DATE OF CONSULTATION: 11/13/2020 NEPHROLOGY CONSULTATION NOTE REASON FOR CONSULT: Hyponatremia. HISTORY OF PRESENT ILLNESS: The patient is an 80-year-old female who was admitted earlier today when she presented to the Emergency Department with right-sided rib pain for the last few weeks. The patient is having some dementia issues as she is not able to tell any accurate medical history. The patient has been more confused than normal. The patient had imaging done including abdominal pelvis as well as chest CT and head CT. She was found to have a very large hypodense liver mass consistent with possible malignancy. She did not have any pulmonary embolus; however, there was mention of numerous lytic skeletal metastases. The patient's serum sodium was found to be slightly low at 133. I do not have previous record. Renal function is normal. Vital signs appear to be normal. She is scheduled to have endoscopic ultrasound tomorrow. She is currently getting IV fluids normal saline. ALLERGIES: ADHESIVE TAPES. HOME MEDICATIONS: Reviewed and include vitamin D, donepezil, famotidine, folic acid, lisinopril, memantine, omeprazole. PAST MEDICAL AND SURGICAL HISTORY: Dissecting hemorrhage of left vertebral artery, elevated homocysteine, hyperlipidemia, hypertension, mild cognitive impairment, which seems to have got worse lately, history of , cataract surgery, wrist surgery, tonsillectomy, adenoidectomy. FAMILY HISTORY: Negative for renal disease or dialysis. SOCIAL HISTORY: The patient is and lives with her spouse. 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 Never smoked. No alcohol. REVIEW OF SYSTEMS: At this point, her review of system is unreliable given some issue with dementia. Positive review of systems as per H and P includes rib pain, especially on the right side. Otherwise, 12 systems reviewed and negative. PHYSICAL EXAMINATION: GENERAL: Elderly white female who is not in any overt respiratory distress. She is awake and alert; however, her orientation is somewhat off especially with regard to time. In no respiratory distress. VITAL SIGNS: Blood pressure 150/73, temperature 36.4, 98% on room air, pulse rate 78, respiratory rate 18 per minute. HEENT: Mucous membranes moist. NECK: Supple. CHEST: Bilaterally clear to auscultation. CARDIOVASCULAR: S1, S2 regular. ABDOMEN: Soft, nontender. EXTREMITIES: Show no edema. LABORATORY TESTS: Sodium 133, potassium 4.1, BUN 12, creatinine 0.6. AST, ALT are elevated as well as alkaline phosphatase. Urine test pending, but urinalysis was present and shows somewhat active urine with urine concentration. ASSESSMENT AND PLAN: An 80-year-old female who appears to have metastatic cancer involving liver, skeleton. She was found to have mild hyponatremia for which I have been consulted. Hyponatremia: Given the advanced cancer history, I would have to assume this is syndrome of inappropriate antidiuretic hormone unless proved otherwise. For the time being, she is getting normal saline at 80 mL per hour, which is reasonable. I would like to check her serum sodium again one more time to see the trend of the sodium. As we are all well aware, normal saline can drop the serum sodium in a syndrome of inappropriate antidiuretic hormone patient. Recommend fluid restriction of 1500 mL per day. Repeat serum sodium as well as do urine osmolality, urine sodium and urine creatinine for further categorization. Thank you very much for the consult.
[2020-11-13] MEDS: PIPERACILLIN/TAZOBACTAM 3.375 GM in DEXTROSE 5% 100 ML IV SCH ×2 (15:26→23:41)
--- NOTE | 2020-11-13 15:54 | Magnetic Resonance Report ---
MR brain wo/w con HISTORY: 80 years-old Female abd CT, lesion R basal ganglia, newly dx liver mas, screening study in a patient with numerous hepatic lesions and lytic skeletal metastasis. Screening study for possible i ntracranial metastasis. COMPARISON: Head CT of same day. TECHNIQUE: Multiplanar multisequence MRI of the brain was obtained both with and without the use of 6 .0 mL Gadavist. FINDINGS: There is no restricted diffusion to suggest acute or subacute infarct. Study is mildly motion degrade d. No acute intracranial hemorrhage, midline shift, abnormal extra-axial collection, hydrocephalus or intracranial mass. Calcifications of the falx cerebri. Hyperostosis frontalis interna. Age-related i nvolutional changes. Mild scattered T2/FLAIR hyperintensities throughout the white matter are suggest leonor of chronic microvascular ischemic disease. No mass or lesion identified in the right caudate nucl eus to correlate with the questioned lesion on comparison head CT. There is a 1.4 x 1.7 x 1.3 cm enha ncing calvarial lesion of the left frontal bone on image 96 series of 13 which demonstrates cortical breakthrough of the inner table of the calvarium and causes minimal mass effect upon the adjacent lef t frontal lobe. This lesion is T2 intermediate in signal without restricted diffusion and demonstrate s decreased T1 signal. No abnormal intracranial enhancement. Heterogeneity of the left parietal janett rium near the vertex on image 106 of series 13 may correlate with an additional enhancing lesion. The paranasal sinuses and major arterial flow voids are patent. The mastoid air cells and paranasal s inuses are clear. Prior bilateral lens repair. Unremarkable soft tissues. IMPRESSION: 1. No acute intracranial abnormality. 2. Enhancing 1.7 cm area of marrow replacement involves the left frontal calvarium and demonstrates c ortical breakthrough involving the inner table of the skull resulting in minimal mass effect upon the adjacent left frontal lobe. This is suggestive of osseous metastatic disease. 3. No intra-axial metastatic lesions identified. ACT 112: Negative or not required by law. The above report was generated using voice recognition software. It may contain grammatical, syntax o r spelling errors. Dictated: 11/13/2020 1:14 PM Transcribed: 11/13/2020 2:08 PM Ivis [id number] [email or web address] Electronically signed by: Mariano Fleming M.D. 11/13/2020 3:52 PM
[2020-11-13] MEDS: ENOXAPARIN INJ 40 MG/0.4 ML SYR SQ SCH (21:00)
[2020-11-14] MEDS: lisinopril 10 MG TAB PO SCH (07:37)
[2020-11-14] MEDS: PANTOprazole 40 MG TAB PO SCH (07:37)
[2020-11-14] MEDS: MEMANTINE HCL 5 MG TAB PO SCH ×2 (07:38→20:22)
[2020-11-14] MEDS: DONEPEZIL HCL 5 MG TAB PO SCH (07:38)
[2020-11-14] MEDS: CHOLECALCIFEROL 1,000 UNITS 25 MCG TAB PO SCH (07:38)
[2020-11-14] MEDS: FAMOTIDINE 20 MG TAB PO SCH ×2 (07:38→20:22)
[2020-11-14] MEDS: FOLIC ACID 1 MG TAB PO SCH (07:38)
[2020-11-14 07:59] LABS: Basophils # (auto) 0.02 K/uL (0-0.2); Basophils % (auto) 0.2 %; Eosinophils # (auto) 0.08 K/uL (0-0.5); Eosinophils % (auto) 0.7 %; Hematocrit (blood only) 33.2 % (37-47); Hemoglobin 10.9 g/dL (12.0-16.0); Immature Granulocytes # (auto) 0.09 K/uL (0.00-0.02); Immature Granulocytes % (auto) 0.8 %; Lymphocytes # (auto) 0.98 K/uL (1.2-3.4); Lymphocytes % (auto) 8.8 %; Mean Corpuscular Hemoglobin 29.9 pg (25-34); Mean Corpuscular Hgb Conc 32.8 g/dL (32-36); Mean Platelet Volume 9.5 fL (7.4-10.4); Monocytes # (auto) 1.05 K/uL (0.11-0.59); Monocytes % (auto) 9.4 %; Neutrophils # (auto) 8.94 K/uL (1.4-6.5); Neutrophils % (auto) 80.1 %; Platelet Count 436 K/uL (130-400); RDW Coefficient of Variation 12.8 % (11.5-14.5); RDW Standard Deviation 42.2 fL (36.4-46.3); Red Blood Count 3.65 M/uL (4.2-5.4); White Blood Count 11.16 K/uL (4.8-10.8)
[2020-11-14 08:24] LABS: Albumin Level 2.5 gm/dl (3.4-5.0); BUN Creatinine Ratio 12.7 (10-20); Creatinine Clr Calc Pharmacy 57.8 ml/min; Est GFR (African American) 93.2 ml/min; Est GFR (Non-African American) 80.4 ml/min; Potassium 4.5 mmol/L (3.5-5.1)
[2020-11-14 08:29] LABS: Albumin Globulin Ratio 0.6 (0.9-2); Bilirubin,Total 1.9 mg/dl (0.2-1); Globulin 4.2 gm/dl (2.5-4.0); Total Protein 6.7 gm/dl (6.4-8.2)
[2020-11-14] MEDS: PIPERACILLIN/TAZOBACTAM 3.375 GM in DEXTROSE 5% 100 ML IV SCH ×2 (08:43→15:43)
[2020-11-14] MEDS ORDERED: SUCCINYLCHOLINE CHLORIDE 20 MG/ML 10 ML VIAL IV ONE (11:25)
[2020-11-14] MEDS ORDERED: LIDOCAINE 2% 2 ML VIAL/AMP(20MG/ML) INFIL ONE (11:25)
[2020-11-14] MEDS ORDERED: DEXAMETHASONE SOD INJ 4 MG/ML VIAL ONE (11:25)
[2020-11-14] MEDS ORDERED: fentaNYL citrate 100 MCG/2 ML VIAL ONE (11:25)
[2020-11-14] MEDS ORDERED: ONDANSETRON INJ 2 MG/ML 2 ML VIAL ONE (11:25)
[2020-11-14] MEDS ORDERED: PROPOFOL IV EMULSION 10 MG/ML 20 ML VIAL IV ONE (11:25)
[2020-11-14] MEDS ORDERED: LABETALOL HCL IV 5 MG/ML 20ML IV PRN (11:40)
[2020-11-14] MEDS ORDERED: ONDANSETRON INJ 2 MG/ML 2 ML VIAL IV PRN (11:40)
[2020-11-14] MEDS ORDERED: ATROPINE SULFATE 0.1 MG/ML 10ML SYR IV PRN (11:40)
[2020-11-14] MEDS ORDERED: ePHEDrine sulfate 50 MG/ML AMP IV PRN (11:40)
[2020-11-14] MEDS ORDERED: PHENYLEPHRINE 100MCG/ML 5ML SYR IV PRN (11:40)
[2020-11-14] MEDS ORDERED: fentaNYL citrate 100 MCG/2 ML VIAL IV PRN (11:40)
[2020-11-14] MEDS ORDERED: MEPERIDINE HCL 25 MG/ML CARP/VIAL IV PRN (11:40)
--- NOTE | 2020-11-14 11:53 | History & Physical Bridge Note ---
Date of Service November 14, 2020 History & Physical Bridge Note I have examined the patient, reviewed the History & Physical and in the interval since the performance of the History & Physical I have noted the following changes of clinical significance: no changes noted. The patient presented with abdominal pain and was found to have evidence of numerous masses within the liver in addition to choledocholithiasis. We are planning to proceed with upper endoscopy, endoscopic ultrasound and ERCP this morning. I discussed the risks and benefits of the procedure with the patient and her daughter who is at bedside. The risks include bleeding, infection, perforation, pancreatitis, failed biliary cannulation and insufficient cellularity.
[2020-11-14] MEDS ORDERED: INDOMETHACIN 50 MG SUPP PR ONE (12:11)
--- NOTE | 2020-11-14 12:52 | GI REPORT ---
Patient Name: Leslie Amador Procedure Date: 11/14/2020 12:19 PM Date of : 1940 Admit Type: Inpatient Age: 80 Gender: Female Attending MD: Sandi Frye DO Procedure: Upper GI endoscopy Providers: Sandi Frye DO Referring MD: MARANDA WHITTAKER Indications: Abnormal CT of the GI tract Medicines: General Anesthesia Complications: No immediate complications. Estimated blood loss: Minimal. Estimated Blood Loss: Estimated blood loss was minimal. Procedure: Pre-Anesthesia Assessment: - Prior to the procedure, a History and Physical was performed, and patient medications, allergies and sensitivities were reviewed. The patient's tolerance of previous anesthesia was reviewed. - The risks and benefits of the procedure and the sedation options and risks were discussed with the patient. All questions were answered and informed consent was obtained. - Patient identification and proposed procedure were verified prior to the procedure by the physician, the nurse and the carbonation tester. The procedure was verified in the procedure room. - Pre-procedure physical examination revealed no contraindications to sedation. - ASA Grade Assessment: III - A patient with severe systemic disease. - After reviewing the risks and benefits, the patient was deemed in satisfactory condition to undergo the procedure. - The anesthesia plan was to use general anesthesia. - Immediately prior to administration of medications, the patient was re-assessed for adequacy to receive sedatives. - The heart rate, respiratory rate, oxygen saturations, blood pressure, adequacy of pulmonary ventilation, and response to care were monitored throughout the procedure. - The physical status of the patient was re-assessed after the procedure. After obtaining informed consent, the endoscope was passed under direct vision. Throughout the procedure, the patient's blood pressure, pulse, and oxygen saturations were monitored continuously. The Endoscope was introduced through the mouth, and advanced to the second part of duodenum. The upper GI endoscopy was accomplished without difficulty. The patient tolerated the procedure well. Findings: The examined esophagus was normal. The entire examined stomach was normal. The examined duodenum was normal. Impression: - Normal esophagus. - Normal stomach. - Normal examined duodenum. - No specimens collected. Recommendation: - Perform an upper endoscopic ultrasound (UEUS) today. Sandi Frye D.O. Sandi Frye DO 11/14/2020 12:51:42 PM This report has been signed electronically. Note Initiated On: 11/14/2020 12:19 PM Number of Addenda: 0 I attest to the content of the Intraoperative Record and orders documented therein, exceptions below {[id number]}
--- NOTE | 2020-11-14 14:06 | GI REPORT ---
Patient Name: Leslie Amador Procedure Date: 11/14/2020 12:21 PM Date of : 1940 Admit Type: Inpatient Age: 80 Gender: Female Attending MD: Sandi Frye DO Procedure: Upper EUS Providers: Sandi Frye DO Referring MD: MARANDA WHITTAKER Indications: Suspected mass in liver on CT scan Medicines: General Anesthesia Complications: No immediate complications. Estimated blood loss: Minimal. Estimated Blood Loss: Estimated blood loss was minimal. Procedure: Pre-Anesthesia Assessment: - Prior to the procedure, a History and Physical was performed, and patient medications, allergies and sensitivities were reviewed. The patient's tolerance of previous anesthesia was reviewed. - The risks and benefits of the procedure and the sedation options and risks were discussed with the patient. All questions were answered and informed consent was obtained. - Patient identification and proposed procedure were verified prior to the procedure by the physician, the nurse and the outpatient coder. The procedure was verified in the procedure room. - Pre-procedure physical examination revealed no contraindications to sedation. - ASA Grade Assessment: III - A patient with severe systemic disease. - After reviewing the risks and benefits, the patient was deemed in satisfactory condition to undergo the procedure. - The anesthesia plan was to use monitored anesthesia care (MAC). - The anesthesia plan was to use general anesthesia. - Immediately prior to administration of medications, the patient was re-assessed for adequacy to receive sedatives. - The heart rate, respiratory rate, oxygen saturations, blood pressure, adequacy of pulmonary ventilation, and response to care were monitored throughout the procedure. - The physical status of the patient was re-assessed after the procedure. After obtaining informed consent, the endoscope was passed under direct vision. Throughout the procedure, the patient's blood pressure, pulse, and oxygen saturations were monitored continuously.After obtaining informed consent, the endoscope was passed under direct vision. Throughout the procedure, the patient's blood pressure, pulse, and oxygen saturations were monitored continuously. The scope was introduced through the mouth, and advanced to the third part of duodenum. The upper EUS was accomplished without difficulty. The patient tolerated the procedure well. Findings: ENDOSONOGRAPHIC FINDING: : There was no sign of significant endosonographic abnormality in the ampulla. No masses were identified. Evidence of a previous cholecystectomy was identified endosonographically. One stone was visualized endosonographically in the common bile duct. The stone measured 5 mm in greatest dimension. The stone was oval. It was hyperechoic and characterized by shadowing. There was no upstream CBD dilation. There was no sign of significant endosonographic abnormality in the entire pancreas. No masses, no cysts, the pancreatic duct was thin in caliber. No lymph nodes were seen during endosonographic examination in the celiac region (level 20), in the perigastric region and in the peripancreatic region. One enlarged lymph node was visualized in the gayatri hepatis region. It measured 25 mm by 20 mm in maximal cross-sectional diameter. The node was oval, hypoechoic and had well defined margins. Fine needle aspiration for cytology was performed. Color Doppler imaging was utilized prior to needle puncture to confirm a lack of significant vascular structures within the needle path. Four passes were made with the 22 gauge needle (Pro-core)using a transduodenal approach. A stylet was used. A breast puller was present and performed a preliminary cytologic examination. Final cytology results are pending. Estimated blood loss was minimal. Several oval masses were identified endosonographically in the left lobe of the liver. The masses was isoechoic. The mass measured 13 mm by 11 mm in maximal cross-sectional diameter. The endosonographic borders were poorly-defined. Fine needle aspiration for cytology was performed. Color Doppler imaging was utilized prior to needle puncture to confirm a lack of significant vascular structures within the needle path. Three passes were made with the 25 gauge needle using a transgastric approach. A stylet was used. A breast puller was present and performed a preliminary cytologic examination. Final cytology results are pending. Estimated blood loss was minimal. There was no sign of significant endosonographic abnormality in the left adrenal gland. No masses and no adrenal gland enlargement were identified. Hypoechoic lesions suggestive of multiple cysts were identified in the left lobe of the liver. The largest lesion measured 25 mm by 23 mm in maximal cross-sectional diameter. There was no associated mass. Impression: - There was no sign of significant pathology in the ampulla. - Evidence of a cholecystectomy. - One stone was visualized endosonographically in the common bile duct. - There was no sign of significant pathology in the entire pancreas. - One enlarged lymph node was visualized in the gayatri hepatis region. Fine needle aspiration performed. - Mulitiple ill-defined masses wer found in the left lobe of the liver. Fine needle aspiration performed. - Endosonographic images of the left adrenal gland were unremarkable. Recommendation: - Perform an ERCP today. - Await cytology results. Sandi Frye D.O. Sandi Frye, DO 11/14/2020 2:06:07 PM This report has been signed electronically. Note Initiated On: 11/14/2020 12:21 PM Number of Addenda: 0 I attest to the content of the Intraoperative Record and orders documented therein, exceptions below {[id number]}
--- NOTE | 2020-11-14 14:13 | GI REPORT ---
Patient Name: Leslie Amador Procedure Date: 11/14/2020 12:22 PM Date of : 1940 Admit Type: Inpatient Age: 80 Gender: Female Attending MD: Sandi Frye DO Procedure: ERCP Providers: Sandi Frye DO Referring MD: MARANDA WHITTAKER Indications: Abdominal pain of suspected biliary origin, Follow-up of bile duct stone(s), Jaundice, Elevated liver enzymes Medicines: General Anesthesia Complications: No immediate complications. Estimated blood loss: Minimal. Estimated Blood Loss: Estimated blood loss was minimal. Procedure: Pre-Anesthesia Assessment: - Prior to the procedure, a History and Physical was performed, and patient medications, allergies and sensitivities were reviewed. The patient's tolerance of previous anesthesia was reviewed. - The risks and benefits of the procedure and the sedation options and risks were discussed with the patient. All questions were answered and informed consent was obtained. - Patient identification and proposed procedure were verified prior to the procedure by the physician, the nurse and the synthetic resin operator. The procedure was verified in the procedure room. - Pre-procedure physical examination revealed no contraindications to sedation. - ASA Grade Assessment: III - A patient with severe systemic disease. - After reviewing the risks and benefits, the patient was deemed in satisfactory condition to undergo the procedure. - The anesthesia plan was to use general anesthesia. - Immediately prior to administration of medications, the patient was re-assessed for adequacy to receive sedatives. - The heart rate, respiratory rate, oxygen saturations, blood pressure, adequacy of pulmonary ventilation, and response to care were monitored throughout the procedure. - The physical status of the patient was re-assessed after the procedure. After obtaining informed consent, the scope was passed under direct vision. Throughout the procedure, the patient's blood pressure, pulse, and oxygen saturations were monitored continuously. The Scope was introduced through the mouth, and advanced to the duodenum and used to cannulate the bile duct. The ERCP was accomplished without difficulty. The patient tolerated the procedure well. Findings: The tomb maker helper film was normal. The esophagus was successfully intubated under direct vision without detailed examination of the pharynx, larynx, and associated structures, and upper GI tract. The upper GI tract was grossly normal. The major papilla was normal. The ventral pancreatic duct was inadvertently cannulated with the short-nosed traction sphincterotome and guidewire without any complications. The wire was left in place to aid in biliary cannulation and later place a prophylactic pancreatic stent.. The bile duct was deeply cannulated with the short-nosed traction sphincterotome and second 0.035 in Angled Acrobat 2 guidewire. Contrast was injected. I personally interpreted the bile duct images. Contrast extended to the entire biliary tree. The lower third of the main bile duct contained filling defect(s) thought to be a stone. There was no obvious malignant stricture nor intrahepatic ductal dilation. Biliary sphincterotomy was made with a Fusion OMNI sphincterotome using ERBE electrocautery. There was no post-sphincterotomy bleeding. To discover objects, the biliary tree was swept with an 11.5 tp 15 mm balloon starting at the bifurcation. Sludge was swept from the duct. One stone was removed. No stones remained, the biliary tree appeared to be draining well. One 5 Fr by 5 cm pancreatic stent with a full external pigtail and no internal flaps was placed 5 cm into the ventral pancreatic duct. Clear fluid flowed through the stent. The stent was in good position. The endoscope was withdrawn from the patient. Indomethacin 100 mg was given via suppository to decrease the risk of post-ERCP pancreatitis (PEP). Impression: - The major papilla appeared normal. - Choledocholithiasis was found. Complete removal was accomplished by biliary sphincterotomy and balloon extraction. - One pancreatic stent was placed into the ventral pancreatic duct. - Indomethacin given to decrease risk of post-ERCP pancreatitis. Recommendation: - Avoid aspirin and nonsteroidal anti-inflammatory medicines for 1 week. - Clear liquid diet today. - Observe patient's clinical course following today's ERCP with therapeutic intervention. Sandi Frye D.O. Sandi Frye, 11/14/2020 2:12:27 PM This report has been signed electronically. Note Initiated On: 11/14/2020 12:22 PM Number of Addenda: 0 I attest to the content of the Intraoperative Record and orders documented therein, exceptions below {[id number]}
--- NOTE | 2020-11-14 14:13 | Post Operative Brief Note ---
Immediate Post Op Note v1 Date of Surgery November 14, 2020 Pre & Post Diagnosis Operation Date: 11/14/20 12:20 Pre-Op Diagnosis: Liver Masses Post-Op Diagnosis: Liver Masses I identified the patient and participated in the time-out.: Yes Procedure Operation Date: 11/14/20 12:20 Actual Procedures p Endoscopic Retrograde Cholangiopancreatography(Not Applicable) - DO sinai Mera Endoscopic Ultrasonography Upper, Esophagogastroduodenoscopy(Not Applicable) - Sandi Frye DO Surgeon Sandi Frye DO Patient Transport Officer none Estimated Blood Loss 0 Findings Consistent with Post-Op Diagnosis
--- NOTE | 2020-11-14 14:17 | Communication Note ---
Date of Service: November 14, 2020 The patient underwent upper endoscopy, endoscopic ultrasound and ERCP this afternoon. We did find several liver masses in addition to portal lymphadenopathy. Fine-needle aspiration was performed from one of the liver maps is in addition to the portal lymph node. Finally we did do an ERCP with removal of a common bile duct stone. There did not appear to be evidence of biliary obstruction after the stone was removed therefore no biliary stent was placed. As we needed to place a wire into the pancreatic duct to access the bile duct a prophylactic pancreatic stent was placed today. Recommendations continue antibiotic coverage for total of 7 days Clear liquid diet today Continue IV hydration overnight if pain-free tomorrow may consider early d ischarge Avoid anticoagulants antiplatelet agents for 1 week post sphincterotomy Patient will need outpatient referral to medical oncology [facility] in 1 month to ensure passage of the pancreatic stent
--- NOTE | 2020-11-14 14:35 | Anesthesiology Progress Note ---
Date of Service November 14, 2020 Anesthesia Post Procedure Vital Signs Vital Signs: Temp Pulse Pulse Pulse Resp BP Pulse Ox 11/14/20 14:30 90 20 163/79 H 100 11/14/20 14:20 89 20 158/85 H 99 11/14/20 14:10 90 18 153/78 H 99 11/14/20 14:03 36.1 C L 98 H 17 159/89 H 100 11/14/20 12:05 36.9 C 87 20 144/80 H 98 11/14/20 11:12 36.9 C 83 18 158/73 H 97 11/14/20 07:32 37.1 C 95 H 18 153/72 H 94 11/14/20 07:00 82 11/14/20 04:00 36.9 C 88 20 149/75 H 96 11/13/20 23:12 37.1 C 83 20 121/75 94 11/13/20 22:19 84 11/13/20 19:33 37.0 C 86 20 137/74 97 11/13/20 15:18 36.8 C 72 18 127/74 98 11/13/20 14:53 83 Pain Intensity Right Ribs: Pain Intensity: 2 Transfer of Care Handoff Completed per policy Notes Mental Status: alert / awake / arousable Patient Amnestic to Procedure: Yes Nausea / Vomiting: adequately controlled Pain: adequately controlled Airway Patency, RR, SpO2: stable & adequate BP & HR: stable & adequate Hydration State: stable & adequate Anesthetic Complications: no major complications apparent and Pt Satisfied with anesthetic care
--- NOTE | 2020-11-14 15:23 | Fluoroscopy Report ---
[place] ERCP biliary ductal HISTORY: 80 years-old Female ERCP acute right upper quadrant abdominal pain COMPARISON: CT abdomen and pelvis 11/13/2020 TECHNIQUE: 10 spot fluoroscopic images of the abdominal right upper quadrant were obtained utilizing 1 minute and 34.4 seconds fluoroscopy time FINDINGS: Endoscope is noted within the duodenum. There is cannulation of the common bile duct with retrograde injection of contrast. Mild intrahepatic and extrahepatic biliary ductal prominence. Filling defects are noted within intrahepatic biliary ducts within the left hepatic lobe corresponding with the hepat ic masses seen on comparison CT. There is contrast in the cystic duct. The gallbladder does not opaci fy with contrast. Subsequent images demonstrate balloon sweep of the common bile duct. Additionally, there is cannulation of the pancreatic duct with placement of a pancreatic duct stent which appears t o be in satisfactory positioning. IMPRESSION: Fluoroscopic assistance as above. ACT 112: Negative or not required by law. The above report was generated using voice recognition software. It may contain grammatical, syntax o r spelling errors. Electronically signed by: Mariano Fleming M.D. 11/14/2020 3:22 PM
[2020-11-14 15:47] LABS: Hepatitis A Antibody IgM NON-REACTIVE (NON-REACTIVE); Hepatitis B Core Antibody IgM NON-REACTIVE (NON-REACTIVE)
--- NOTE | 2020-11-14 16:49 | Hospitalist Progress Note ---
Date of Service November 14, 2020 Assessment & Plan (1) Liver mass: (2) Metastatic disease: (3) Common bile duct stone: (4) Elevated LFTs: This is an 80 yr old F who has a significant PMH of alzhemier, HTN, HLD who presents to ED 2/2 to R sided rib pain x 2-3 weeks. Newly dx large liver mass per abdominal CT: large hypodense mass centered within the anterior segment of the right hepatic lobe and the medial segment of the left hepatic lobe that measures 8.5 x 7.2 cm. There are numerous smaller satellite lesions. Also noted is dilated moderate intrahepatic biliary ductal dilatation, greater within the left hepatic lobe. There is a 4 mm calculus within the distal common bile duct. Multiple lytic skeletal lesions are noted, including a lytic lesion within the right ischial tuberosity as well as a 2.2 cm lytic lesion within the right iliac bone. Numerous lytic lesions within the bony thorax including a 2.4 cm lesion within the left rib, lytic lesion within the inferior right scapula, left aspect of T7 vertebral body, multiple retroperitoneal lymph nodes, prominent cardiophrenic lymph nodes, pathologic left superior mediastinal adenopathy. CT head concerning for possible lesion to R basal ganglia and cranial hyperostosis recommending MRI. MRI head showed no acute intracranial abnormality. Enhancing 1.7 cm area of marrow replacement involves the left frontal calvarium and demonstrates cortical breakthrough involving the inner table of the skull resulting in minimal mass ef fect upon the adjacent left frontal lobe. This is suggestive of osseous metastatic disease. GI on board S/P Endoscopic Retrograde Cholangiopancreatography and EGD perfomed by Dr. Frye, several liver masses seen in addition to portal lymphadenopathy Fine-needle aspiration was performed from one of the liver maps is in addition to the portal lymph node. Removal of a common bile duct stone during te ERCP with no biliary stent placed gastro recommended to continue antibiotic coverage for total of 7 days Will start on clear liquid diet today Continue IV hydration overnight if pain-free tomorrow may consider early discharge Avoid anticoagulants antiplatelet agents for 1 week post sphincterotomy Patient will need outpatient referral to medical oncology [facility] in 1 month to ensure passage of the pancreatic stent Continue lidocaine patch, tramadol and tylenol prn for the pain (5) Hypertension: continue lisinopril with parameters (6) Mild cognitive impairment: mental status waxes and wanes, currently A&O x 3 continue aricept and memantine pt follows [facility] (7) DVT prophylaxis: Will hold on SQ Lovenox Dispo: Possible discharge tomorrow PCP: Percy FULL CODE Admission and Anticipated Discharge Date Admission Date: November 13, 2020 Subjective Pt was seen and examined for follow up of rib pain Lying in bed with no distress with at bedside Pt said that she feels ok She said that her she is having mild tenderness in her throat probably related to the scope Denies any chest pain, palpitation, dizziness and SOB Review of Systems Review of Systems: All systems reviewed & are unremarkable except as noted in Subjective Physical Exam Physical Exam: General- No acute distress Head- atraumatic Eyes- PERRL, EOMI, ENT- oropharynx clear Neck- supple, no JVD Lungs- clear to auscultation Heart- regular rhythm; no murmur Abdomen- normal bowel sounds, soft, nontender Extremities- no calf tenderness Neuro- alert, oriented x 3; PERRL, EOMI; no facial palsy; no dysarthria Skin- warm & dry Results & Data Results & Data ([facility]) Vital Signs (Past 12 Hours) Vital Signs Temp Pulse Pulse Pulse Resp BP Pulse Ox 11/14/20 16:33 82 11/14/20 15:41 36.6 C 84 20 153/72 H 98 11/14/20 15:31 36.9 C 88 18 161/79 H 97 11/14/20 15:28 36.9 C 88 18 161/79 H 97 11/14/20 15:14 36.9 C 85 20 158/82 H 97 11/14/20 14:50 37.0 C 86 20 166/78 H 100 11/14/20 14:40 88 20 161/92 H 100 11/14/20 14:30 90 20 163/79 H 100 11/14/20 14:20 89 20 158/85 H 99 11/14/20 14:10 90 18 153/78 H 99 11/14/20 14:03 36.1 C L 98 H 17 159/89 H 100 11/14/20 12:05 36.9 C 87 20 144/80 H 98 11/14/20 11:12 36.9 C 83 18 158/73 H 97 11/14/20 07:32 37.1 C 95 H 18 153/72 H 94 11/14/20 07:00 82 (1) Metastatic disease Area of secondary neoplastic involvement: unspecified site Qualified Code(s): 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
[2020-11-14] MEDS: ENOXAPARIN INJ 40 MG/0.4 ML SYR SQ SCH (20:21)
[2020-11-15 07:57] LABS: Hematocrit (blood only) 32.3 % (37-47); Hemoglobin 10.6 g/dL (12.0-16.0); Mean Corpuscular Hgb Conc 32.8 g/dL (32-36); Mean Corpuscular Volume 91.5 fL (80-100); Mean Platelet Volume 9.6 fL (7.4-10.4); Platelet Count 431 K/uL (130-400); RDW Coefficient of Variation 12.8 % (11.5-14.5); RDW Standard Deviation 42.6 fL (36.4-46.3); Red Blood Count 3.53 M/uL (4.2-5.4); White Blood Count 11.41 K/uL (4.8-10.8)
[2020-11-15 08:35] LABS: Albumin Globulin Ratio 0.6 (0.9-2); Albumin Level 2.4 gm/dl (3.4-5.0); BUN Creatinine Ratio 13.8 (10-20); Bilirubin,Total 1.6 mg/dl (0.2-1); Calcium 10.4 mg/dl (8.5-10.1); Creatinine Clr Calc Pharmacy 40.2 ml/min; Est GFR (African American) 60.2 ml/min; Est GFR (Non-African American) 51.9 ml/min; Globulin 4.1 gm/dl (2.5-4.0); Potassium 3.6 mmol/L (3.5-5.1); Total Protein 6.5 gm/dl (6.4-8.2)
--- NOTE | 2020-11-15 08:40 | Gastroenterology Progress Note ---
Date of Service November 15, 2020 Assessment & Plan (1) Common bile duct stone: 80 year old female w/ RUQ pain, weight loss and food aversion w/ large hepatic mass w/ pathologic lymph nodes and lytic skeletal metastases concerning for liver primary with metastatic disease. CT also raising concern for retained biliary stones S/P EGD, EUS, ERCP w/ stone removal, FNA of masses No GI contraindication to diet No GI contraindication to d/c home Continue antibiotic coverage for total of 7 days Avoid anticoagulants antiplatelet agents for 1 week post sphincterotomy Patient will need outpatient referral to medical oncology [facility] in 1 month to ensure passage of the pancreatic stent Will sign off.Thank you for allowing us to participate in the care of this patient. Please call with any acute changes, questions or concerns. Please see addendum below with additional recommendation from my supervising physician. (2) Liver mass: Admission and Anticipated Discharge Date Admission Date: November 13, 2020 Supervising Physician Co-Signing Physician Notes I saw and evaluated the patient this morning. She notes that she does seem to feel improved after gallstone extraction yesterday. We did obtain biopsies from the liver masses as mentioned during our notes yesterday. Final pathology results will likely be available next week. The patient will need to be seen by medical oncology provider as an outpatient. Please call with any additional questions or concerns, GI to sign off Subjective Pt was seen and evaluated, chart reviewed. S/P EGD, EUS, ERCP yesterday Stone removal, PD stent placement, FNA liver masses Feeling well, no abd pain No nausea, vomiting Tolerating clears. Wants to go home. Review of Systems Review of Systems: All systems reviewed & are unremarkable except as noted in HPI & below Physical Exam Constitutional: WD/WN, vitals as above Neck: trachea midline, no thyromegaly Respiratory: normal respiratory effort, lungs clear to auscultation Cardiovascular: RRR, no murmur, no edema Gastrointestinal (Abdomen): normal bowel sounds, soft, nontender, no hepatosplenomegaly Results & Data ([facility]) Vital Signs (Past 12 Hours) Vital Signs Temp Pulse Pulse Resp BP Pulse Ox 11/15/20 07:00 36.7 C 81 20 143/70 H 97 11/15/20 04:57 36.6 C 78 20 137/74 98 11/15/20 04:11 76 11/15/20 00:00 36.7 C 93 H 20 165/75 H 99 Laboratory Results 11/15/20 11/15/20 11/14/20 Range/Units 07:31 07:31 13:08 WBC 11.41 H (4.8-10.8) K/uL RBC 3.53 L (4.2-5.4) M/uL Hgb 10.6 L (12.0-16.0) g/dL Hct 32.3 L (37-47) % MCV 91.5 (80-100) fL MCH 30.0 (25-34) pg MCHC 32.8 (32-36) g/dL RDW Std Deviation 42.6 (36.4-46.3) fL RDW Coeff of Rhianna 12.8 (11.5-14.5) % Plt Count 431 H (130-400) K/uL MPV 9.6 (7.4-10.4) fL Sodium 135 L (136-145) mmol/L Potassium 3.6 D (3.5-5.1) mmol/L Chloride 102 (98-107) mmol/L Carbon Dioxide 27 (21-32) mmol/L Anion Gap 7.0 (3-11) BUN 14 D (7-18) mg/dl Creatinine 1.02 (0.6-1.2) mg/dl Est Cr Clr Drug Dosing 40.2 ml/min Est GFR ( Amer) 60.2 ml/min Est GFR (Non-Af Amer) 51.9 ml/min BUN/Creatinine Ratio 13.8 (10-20) Glucose 88 (70-99) mg/dl Calcium 10.4 H (8.5-10.1) mg/dl Total Bilirubin 1.6 H (0.2-1) mg/dl AST 124 H (15-37) U/L ALT 363 H (12-78) U/L Alkaline Phosphatase 480 H (45-117) U/L Total Protein 6.5 (6.4-8.2) gm/dl Albumin 2.4 L (3.4-5.0) gm/dl Globulin 4.1 H (2.5-4.0) gm/dl Albumin/Globulin Ratio 0.6 L (0.9-2) Hepatitis A IgM Ab (NON-REACTIVE) Hep B Core IgM Ab (NON-REACTIVE) Flow Cytometry Comment Pending 11/13/20 Range/Units 05:58 WBC (4.8-10.8) K/uL RBC (4.2-5.4) M/uL Hgb (12.0-16.0) g/dL Hct (37-47) % MCV (80-100) fL MCH (25-34) pg MCHC (32-36) g/dL RDW Std Deviation (36.4-46.3) fL RDW Coeff of Rhianna (11.5-14.5) % Plt Count (130-400) K/uL MPV (7.4-10.4) fL Sodium (136-145) mmol/L Potassium (3.5-5.1) mmol/L Chloride (98-107) mmol/L Carbon Dioxide (21-32) mmol/L Anion Gap (3-11) BUN (7-18) mg/dl Creatinine (0.6-1.2) mg/dl Est Cr Clr Drug Dosing ml/min Est GFR ( Amer) ml/min Est GFR (Non-Af Amer) ml/min BUN/Creatinine Ratio (10-20) Glucose (70-99) mg/dl Calcium (8.5-10.1) mg/dl Total Bilirubin (0.2-1) mg/dl AST (15-37) U/L ALT (12-78) U/L Alkaline Phosphatase (45-117) U/L Total Protein (6.4-8.2) gm/dl Albumin (3.4-5.0) gm/dl Globulin (2.5-4.0) gm/dl Albumin/Globulin Ratio (0.9-2) Hepatitis A IgM Ab NON-REACTIVE (NON-REACTIVE) Hep B Core IgM Ab NON-REACTIVE (NON-REACTIVE) Flow Cytometry Comment
[2020-11-15] MEDS: PIPERACILLIN/TAZOBACTAM 3.375 GM in DEXTROSE 5% 100 ML IV SCH ×2 (08:49)
[2020-11-15] MEDS: MEMANTINE HCL 5 MG TAB PO SCH (08:49)
[2020-11-15] MEDS: FAMOTIDINE 20 MG TAB PO SCH (08:50)
[2020-11-15] MEDS: CHOLECALCIFEROL 1,000 UNITS 25 MCG TAB PO SCH (08:51)
[2020-11-15] MEDS: DONEPEZIL HCL 5 MG TAB PO SCH (08:51)
[2020-11-15] MEDS: lisinopril 10 MG TAB PO SCH (08:51)
[2020-11-15] MEDS: FOLIC ACID 1 MG TAB PO SCH (08:51)
[2020-11-15] MEDS: PANTOprazole 40 MG TAB PO SCH (08:51)
--- NOTE | 2020-11-15 14:23 | Hospitalist Progress Note ---
Date of Service November 15, 2020 Assessment & Plan (1) Liver mass: (2) Metastatic disease: (3) Common bile duct stone: (4) Elevated LFTs: This is an 80 yr old F who has a significant PMH of alzhemier, HTN, HLD who presents to ED 2/2 to R sided rib pain x 2-3 weeks. Newly dx large liver mass per abdominal CT: large hypodense mass centered within the anterior segment of the right hepatic lobe and the medial segment of the left hepatic lobe that measures 8.5 x 7.2 cm. There are numerous smaller satellite lesions. Also noted is dilated moderate intrahepatic biliary ductal dilatation, greater within the left hepatic lobe. There is a 4 mm calculus within the distal common bile duct. Multiple lytic skeletal lesions are noted, including a lytic lesion within the right ischial tuberosity as well as a 2.2 cm lytic lesion within the right iliac bone. Numerous lytic lesions within the bony thorax including a 2.4 cm lesion within the left rib, lytic lesion within the inferior right scapula, left aspect of T7 vertebral body, multiple retroperitoneal lymph nodes, prominent cardiophrenic lymph nodes, pathologic left superior mediastinal adenopathy. CT head concerning for possible lesion to R basal ganglia and cranial hyperostosis recommending MRI. MRI head showed no acute intracranial abnormality. Enhancing 1.7 cm area of marrow replacement involves the left frontal calvarium and demonstrates cortical breakthrough involving the inner table of the skull resulting in minimal mass ef fect upon the adjacent left frontal lobe. This is suggestive of osseous metastatic disease. GI on board S/P Endoscopic Retrograde Cholangiopancreatography and EGD perfomed by Dr. Frye Liver enzymes trending down with AST from 191 to 124, ALT from 489 to 363 and ALK phos from 523 to 480 several liver masses seen in addition to portal lymphadenopathy Fine-needle aspiration was performed from one of the liver maps is in addition to the portal lymph node. Removal of a common bile duct stone during te ERCP with no biliary stent placed, but PD stent placed gastro recommended to continue antibiotic coverage for total of 7 days Tolerated clear liquid diet and advanced to low fiber diet Avoid anticoagulants antiplatelet agents for 1 week post sphincterotomy Patient will need outpatient referral to medical oncology [facility] in 1 month to ensure passage of the pancreatic stent Continue lidocaine patch, tramadol and tylenol prn for the pain Will need to check Liver enzymes in 1 week Ok from GI standpoint to discharge home Will need referral to Oncology Follow up with GI outpatient to discuss about the biopsy result Skull lesion MRI head showed enhancing 1.7 cm area of marrow replacement involves the left frontal calvarium and demonstrates cortical breakthrough involving the inner table of the skull resulting in minimal mass effect upon the adjacent left frontal lobe. This is suggestive of osseous metastatic disease. MRI finding discussed with patient and at bedside (5) Hypertension: continue lisinopril with parameters (6) Mild cognitive impairment: mental status waxes and wanes, currently A&O x 3 continue aricept and memantine pt follows [facility] (7) DVT prophylaxis: Hold on SQ Lovenox due to recent ERCP and PD stent placed Dispo: Possible discharge today PCP: Percy FULL CODE Admission and Anticipated Discharge Date Admission Date: November 13, 2020 Subjective Pt was seen and examined for follow up rib pain Lying in bed with no distress with at bedside Pt said that she feels fine She said that her pain improves significantly She would like to go home today She tolerated clear liquid diet Denies any chest pain, palpitation, dizziness and SOB Review of Systems Review of Systems: All systems reviewed & are unremarkable except as noted in Subjective Physical Exam Physical Exam: General- No acute distress Head- atraumatic Eyes- PERRL, EOMI, ENT- oropharynx clear Neck- supple, no JVD Lungs- clear to auscultation Heart- regular rhythm; no murmur Abdomen- normal bowel sounds, soft, nontender Extremities- no calf tenderness Neuro- alert, oriented x 3; PERRL, EOMI; no facial palsy; no dysarthria Skin- warm & dry Results & Data Results & Data ([facility]) Vital Signs (Past 12 Hours) Vital Signs Temp Pulse Pulse Resp BP Pulse Ox 11/15/20 11:49 36.7 C 85 18 135/73 98 11/15/20 08:00 77 11/15/20 07:00 36.7 C 81 20 143/70 H 97 11/15/20 04:57 36.6 C 78 20 137/74 98 11/15/20 04:11 76 (1) Metastatic disease Area of secondary neoplastic involvement: unspecified site Qualified Code(s): 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
[2020-11-15] MEDS ORDERED: AMOXICILLIN/CLAVULANATE 875 MG TAB PO SCH (21:00)
--- NOTE | 2020-11-19 08:32 | Discharge Summary ---
Date of Service November 15 2020 Admission HPI Per Admitting Provider This is an 80 yr old F who has a significant PMH of alzhemier, HTN, HLD who presents to ED 2/2 to R sided rib pain x 2-3 weeks. Pt has been seen as outpt over the past 2 weeks due to pain, freq falls, weakness, poor appetite and 8lb weight loss. She also has been having abdominal pain and belching for which she has been started on omeprazole and famotidine. She woke up this morning with severe pain and was brought to ED via ambulance. is at bedside who provides most of history. During outpt work up pt did have CT a/p which was concerning for a large hepatic mass with mets to bone and lymph nodes as well as stone in bile duct. She has had vomiting, 2 episodes yesterday and episode one week ago. She also has intermittent BHAKTA and, "heavy head." Per pt mental status waxes and wanes. For example upon arrival to ED she thought she was in MVA 2 weeks ago, but is A O x 3. Denies f/c/s, dizziness, lightheaded, chest pain, sob, uri sx, n/v/d, dysuria, increased urgency/freq with urination. In ED pt was hemodynamically stable. She has a mild leukocytosis, 11.82k, elevated LFTS AST 278, ALT 546, ALP 538, T bili 1.3, low albumin 2.8. She had a head CT which was concerning for possible lesion at R basal ganglia recommending MRI. CT A/P re confirms the Large hypodense hepatic mass, measuring 8.5 x 7.2 cm, with numerous satellite lesions. 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 Moderate intrahepatic biliary ductal dilatation, greater within the left hepatic lobe. There are numerous pathologic lymph nodes and lytic skeletal metastases, as described above. 4 mm calculus within the distal common bile duct. CTA chest negative for PE, but did reveal Numerous lytic skeletal metastases, a 7 mm lingular metastasis and a pathologic left superior mediastinal lymph node. Admission Exam Per Admitting Provider Constitutional: WD/WN, vitals as above, NAD, sitting up in bed, pleasant, conversing easily Head: Normocephalic, Atraumatic Eyes: PERRL, conjunctivae normal, anicteric sclerae ENMT: external ear and nose normal, oropharynx normal Neck: trachea midline, no thyromegaly normal visual inspection Respiratory: normal respiratory effort, lungs clear to auscultation, no wheeze, rales, rhonchi. Normal insp/exp effort, no accessory muscle use Cardiovascular: RRR, no murmur, no edema Vessels: no JVD or carotid bruit Chest: normal inspection of chest Abdomen: normal bowel sounds, soft, nontender, no hepatosplenomegaly Musculoskeletal: no cyanosis or clubbing, extremities motor strength 5/5 Skin: no rashes, warm and dry normal turgor Neurologic: PERRL, no face palsy, no dysarthria CN's II-XI intact bilaterally and moves all extremities Psychiatric: A+Ox3, mild confusion, euthymic affect : deferred Principal Diagnosis (1) Liver mass: (2) Common bile duct stone: (3) Elevated Liver Enzymes (4) Skull lesion (5) Hypertension: (6) Mild cognitive impairment: Discharge Exam General- No acute distress Head- atraumatic Eyes- PERRL, EOMI, ENT- oropharynx clear Neck- supple, no JVD Lungs- clear to auscultation Heart- regular rhythm; no murmur Abdomen- normal bowel sounds, soft, nontender Extremities- no calf tenderness Neuro- alert, oriented x 3; PERRL, EOMI; no facial palsy; no dysarthria Skin- warm & dry Discharge Data Allergies Allergy/AdvReac Type Severity Reaction Status Date / Time adhesive tape AdvReac Unknown Verified 11/13/20 08:17 Consultations 11/13/20 08:13 ED Decision to Admit Stat 11/13/20 08:35 Consult Gastroenterology Routine 11/13/20 17:01 Consult Nephrology Routine Procedures Performed Operation Date: 11/14/20 12:20 Actual Procedures p Endoscopic Retrograde Cholangiopancreatography(Not Applicable) - DO sinai Mera Endoscopic Ultrasonography Upper, Esophagogastroduodenoscopy(Not Applicable) - DO FLY Mera ERCP biliary ductal HISTORY: 80 years-old Female ERCP acute right upper quadrant abdominal pain COMPARISON: CT abdomen and pelvis 11/13/2020 TECHNIQUE: 10 spot fluoroscopic images of the abdominal right upper quadrant were obtained utilizing 1 minute and 34.4 seconds fluoroscopy time FINDINGS: Endoscope is noted within the duodenum. There is cannulation of the common bile duct with retrograde injection of contrast. Mild intrahepatic and extrahepatic biliary ductal prominence. Filling defects are noted within intrahepatic biliary ducts within the left hepatic lobe corresponding with the hepatic masses seen on comparison CT. There is contrast in the cystic duct. The gallbladder does not opacify with contrast. Subsequent images demonstrate balloon sweep of the common bile duct. Additionally, there is cannulation of the pancreatic duct with placement of a pancreatic duct stent which appears to be in satisfactory positioning. IMPRESSION: Fluoroscopic assistance as above. ACT 112: Negative or not required by law. The above report was generated using voice recognition software. It may contain grammatical, syntax or spelling errors. Electronically signed by: Mariano Fleming M.D. 11/14/2020 3:22 PM Dictated: 11/14/201409Transcribed: 11/14/201415 DICTATED BY: Sandi Frye DO Patient Name: Leslie Amador Procedure Date: 11/14/2020 12:22 PM Date of : 1940 Admit Type: Inpatient Age: 80 Gender: Female Attending MD: Sandi Frye DO Procedure: ERCP Providers: Sandi Frye DO Referring MD: MARANDA CASTILLO Indications: Abdominal pain of suspected biliary origin, Follow-up of bile duct stone(s), Jaundice, Elevated liver enzymes Medicines: General Anesthesia Complications: No immediate complications. Estimated blood loss: Minimal. Estimated Blood Loss: Estimated blood loss was minimal. Procedure: Pre-Anesthesia Assessment: - Prior to the procedure, a History and Physical was performed, and patient medications, allergies and sensitivities were reviewed. The patient's tolerance of previous anesthesia was reviewed. - The risks and benefits of the procedure and the sedation options and risks were discussed with the patient. All questions were answered and informed consent was obtained. - Patient identification and proposed procedure were verified prior to the procedure by the physician, the nurse and the early childhood director. The procedure was verified in the procedure room. - Pre-procedure physical examination revealed no contraindications to sedation. - ASA Grade Assessment: III - A patient with severe systemic disease. - After reviewing the risks and benefits, the patient was deemed in satisfactory condition to undergo the procedure. - The anesthesia plan was to use general anesthesia. - Immediately prior to administration of medications, the patient was re-assessed for adequacy to receive sedatives. - The heart rate, respiratory rate, oxygen saturations, blood pressure, adequacy of pulmonary ventilation, and response to care were monitored throughout the procedure. - The physical status of the patient was re-assessed after the procedure. After obtaining informed consent, the scope was passed under direct vision. Throughout the procedure, the patient's blood pressure, pulse, and oxygen saturations were monitored continuously. The Scope was introduced through the mouth, and advanced to the duodenum and used to cannulate the bile duct. The ERCP was accomplished without difficulty. The patient tolerated the procedure well. Findings: The spool salvager film was normal. The esophagus was successfully intubated under direct vision without detailed examination of the pharynx, larynx, and associated structures, and upper GI tract. The upper GI tract was grossly normal. The major papilla was normal. The ventral pancreatic duct was inadvertently cannulated with the short-nosed traction sphincterotome and guidewire without any complications. The wire was left in place to aid in biliary cannulation and later place a prophylactic pancreatic stent.. The bile duct was deeply cannulated with the short-nosed traction sphincterotome and second 0.035 in Angled Acrobat 2 guidewire. Contrast was injected. I personally interpreted the bile duct images. Contrast extended to the entire biliary tree. The lower third of the main bile duct contained filling defect(s) thought to be a stone. There was no obvious malignant stricture nor intrahepatic ductal dilation. Biliary sphincterotomy was made with a Fusion OMNI sphincterotome using ERBE electrocautery. There was no post-sphincterotomy bleeding. To discover objects, the biliary tree was swept with an 11.5 tp 15 mm balloon starting at the bifurcation. Sludge was swept from the duct. One stone was removed. No stones remained, the biliary tree appeared to be draining well. One 5 Fr by 5 cm pancreatic stent with a full external pigtail and no internal flaps was placed 5 cm into the ventral pancreatic duct. Clear fluid flowed through the stent. The stent was in good position. The endoscope was withdrawn from the patient. Indomethacin 100 mg was given via suppository to decrease the risk of post-ERCP pancreatitis (PEP). Impression: - The major papilla appeared normal. - Choledocholithiasis was found. Complete removal was accomplished by biliary sphincterotomy and balloon extraction. - One pancreatic stent was placed into the ventral pancreatic duct. - Indomethacin given to decrease risk of post-ERCP pancreatitis. Recommendation: - Avoid aspirin and nonsteroidal anti-inflammatory medicines for 1 week. - Clear liquid diet today. - Observe patient's clinical course following today's ERCP with therapeutic intervention. Gloria Mera DO 11/14/2020 2:12:27 PM This report has been signed electronically. Note Initiated On: 11/14/2020 12:22 PM Number of Addenda: 0 I attest to the content of the Intraoperative Record and orders documented therein, exceptions below {[id number]} Signed By:{f rep sign date/time1]Created/Dictated: 11/14/20 1222Transcribed: 11/14/20 1412Transcriptionist: KETAN The status of this report is Signed.Draft = Not yet reviewed or approved by Medical Physician.Signed = Reviewed and approved by Medical Physician. DICTATED BY: Sandi Frye DO Patient Name: Leslie Amador Procedure Date: 11/14/2020 12:21 PM Date of : 1940 Admit Type: Inpatient Age: 80 Gender: Female Attending MD: Sandi Frye DO Procedure: Upper EUS Providers: Sandi Frye DO Referring MD: MARANDA CASTILLO Indications: Suspected mass in liver on CT scan Medicines: General Anesthesia Complications: No immediate complications. Estimated blood loss: Minimal. Estimated Blood Loss: Estimated blood loss was minimal. Procedure: Pre-Anesthesia Assessment: - Prior to the procedure, a History and Physical was performed, and patient medications, allergies and sensitivities were reviewed. The patient's tolerance of previous anesthesia was reviewed. - The risks and benefits of the procedure and the sedation options and risks were discussed with the patient. All questions were answered and informed consent was obtained. - Patient identification and proposed procedure were verified prior to the procedure by the physician, the nurse and the early childhood director. The procedure was verified in the procedure room. - Pre-procedure physical examination revealed no contraindications to sedation. - ASA Grade Assessment: III - A patient with severe systemic disease. - After reviewing the risks and benefits, the patient was deemed in satisfactory condition to undergo the procedure. - The anesthesia plan was to use monitored anesthesia care (MAC). - The anesthesia plan was to use general anesthesia. - Immediately prior to administration of medications, the patient was re-assessed for adequacy to receive sedatives. - The heart rate, respiratory rate, oxygen saturations, blood pressure, adequacy of pulmonary ventilation, and response to care were monitored throughout the procedure. - The physical status of the patient was re-assessed after the procedure. After obtaining informed consent, the endoscope was passed under direct vision. Throughout the procedure, the patient's blood pressure, pulse, and oxygen saturations were monitored continuously.After obtaining informed consent, the endoscope was passed under direct vision. Throughout the procedure, the patient's blood pressure, pulse, and oxygen saturations were monitored continuously. The scope was introduced through the mouth, and advanced to the third part of duodenum. The upper EUS was accomplished without difficulty. The patient tolerated the procedure well. Findings: ENDOSONOGRAPHIC FINDING: : There was no sign of significant endosonographic abnormality in the ampulla. No masses were identified. Evidence of a previous cholecystectomy was identified endosonographically. One stone was visualized endosonographically in the common bile duct. The stone measured 5 mm in greatest dimension. The stone was oval. It was hyperechoic and characterized by shadowing. There was no upstream CBD dilation. There was no sign of significant endosonographic abnormality in the entire pancreas. No masses, no cysts, the pancreatic duct was thin in caliber. No lymph nodes were seen during endosonographic examination in the celiac region (level 20), in the perigastric region and in the peripancreatic region. One enlarged lymph node was visualized in the gayatri hepatis region. It measured 25 mm by 20 mm in maximal cross-sectional diameter. The node was oval, hypoechoic and had well defined margins. Fine needle aspiration for cytology was performed. Color Doppler imaging was utilized prior to needle puncture to confirm a lack of significant vascular structures within the needle path. Four passes were made with the 22 gauge needle (Pro-core)using a transduodenal approach. A stylet was used. A radiation oncologist was present and performed a preliminary cytologic examination. Final cytology results are pending. Estimated blood loss was minimal. Several oval masses were identified endosonographically in the left lobe of the liver. The masses was isoechoic. The mass measured 13 mm by 11 mm in maximal cross-sectional diameter. The endosonographic borders were poorly-defined. Fine needle aspiration for cytology was performed. Color Doppler imaging was utilized prior to needle puncture to confirm a lack of significant vascular structures within the needle path. Three passes were made with the 25 gauge needle using a transgastric approach. A stylet was used. A radiation oncologist was present and performed a preliminary cytologic examination. Final cytology results are pending. Estimated blood loss was minimal. There was no sign of significant endosonographic abnormality in the left adrenal gland. No masses and no adrenal gland enlargement were identified. Hypoechoic lesions suggestive of multiple cysts were identified in the left lobe of the liver. The largest lesion measured 25 mm by 23 mm in maximal cross-sectional diameter. There was no associated mass. Impression: - There was no sign of significant pathology in the ampulla. - Evidence of a cholecystectomy. - One stone was visualized endosonographically in the common bile duct. - There was no sign of significant pathology in the entire pancreas. - One enlarged lymph node was visualized in the gayatri hepatis region. Fine needle aspiration performed. - Mulitiple ill-defined masses wer found in the left lobe of the liver. Fine needle aspiration performed. - Endosonographic images of the left adrenal gland were unremarkable. Recommendation: - Perform an ERCP today. - Await cytology results. Sandi Frye D.O. Sandi Frye, 11/14/2020 2:06:07 PM This report has been signed electronically. Note Initiated On: 11/14/2020 12:21 PM Number of Addenda: 0 I attest to the content of the Intraoperative Record and orders documented therein, exceptions below {[id number]} Signed By:{f rep sign date/time1]Created/Dictated: 11/14/20 1221Transcribed: 11/14/20 1406Transcriptionist: KETAN The status of this report is Signed.Draft = Not yet reviewed or approved by Medical Physician.Signed = Reviewed and approved by Medical Physician. Ordered Studies 11/13/20 05:52 CT abd pelvis IV con only Stat CT angio chest PE protocol Stat CT head/brain wo con Stat 11/13/20 09:24 MR brain wo/w con Routine 11/14/20 12:17 US upper EUS PACS images Routine 11/14/20 12:20 [place] ERCP biliary ductal Routine CT OF THE ABDOMEN AND PELVIS WITH CONTRAST CLINICAL HISTORY: Right upper quadrant abdominal pain. COMPARISON STUDY: None. TECHNIQUE: Following IV administration of 116 mL of Optiray, axial images of the abdomen and pelvis were obtained from the lung bases to the proximal femurs. Images were reviewed in the axial, sagittal, and coronal planes. IV contrast was administered without complication. Automated exposure control was utilized for the study. A dose lowering technique was utilized adhering to the principles of ALARA. CT DOSE: 1881.01 mGy.cm FINDINGS: A 7 mm lingular nodule is noted. No pneumatosis, free air or portal venous gas is present. There is trace perihepatic ascites. Note is made of a large hypodense mass centered within the anterior segment of the right hepatic lobe and the medial segment of the left hepatic lobe that measures 8.5 x 7.2 cm. There are numerous smaller satellite lesions. Note is made of moderate intrah epatic biliary ductal dilatation, greater within the left hepatic lobe. There is a 4 mm calculus within the distal common bile duct. There is no pancreatic ductal dilatation. There is narrowing of the portal vein which remains patent. Numerous partially necrotic portacaval and gayatri hepatis lymph nodes are noted. There are also multiple pathologic retroperitoneal lymph nodes. There are gallstones within the gallbladder. The spleen and adrenal glands are unremarkable. A 7 mm cystic lesion within the uncinate process of the pancreas is noted. There is no hydronephrosis. There is no evidence for a bowel obstruction. There is a small cyst within the right ovary. There is mild wall thickening of the anterior bladder. There is no evidence for acute appendicitis. Multiple lytic skeletal lesions are noted, including a lytic lesion within the right ischial tuberosity as well as a 2.2 cm lytic lesion within the right iliac bone. IMPRESSION: 1. Large hypodense hepatic mass, measuring 8.5 x 7.2 cm, with numerous satellite lesions. 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 Moderate intrahepatic biliary ductal dilatation, greater within the left hepatic lobe. 2. Numerous pathologic lymph nodes and lytic skeletal metastases, as described above. 3. 4 mm calculus within the distal common bile duct. 4. Cholelithiasis. ACT 112: Negative or not required by law. Electronically signed by: Braden Andersen M.D. CT ANGIOGRAPHY OF THE CHEST, PULMONARY EMBOLUS PROTOCOL CLINICAL HISTORY: Chest Pain, eval for PE COMPARISON STUDY: Chest CT August 04, 2007. TECHNIQUE: Following IV administration of 116 mL of Optiray, helical axial images of the chest were obtained utilizing the pulmonary embolus protocol. Maximal intensity projections and sagittal and coronal reformats were viewed on an independent 3D workstation. IV contrast was administered without complication. Automated exposure control was utilized for the study. A dose lowering technique was utilized adhering to the principles of ALARA. FINDINGS: No pulmonary emboli are identified. There is no thoracic aortic dissection. Moderate cardiomegaly is noted. There is no pericardial effusion. There is an enlarged left upper mediastinal lymph node on axial image 231 of that measures 1.4 cm. There is no pneumothorax. There is no consolidation to suggest pneumonia. A 7 mm lingular nodule on image [address] of August 04, 2007. Subpleural opacities favor atelectasis. Note is made of numerous lytic lesions within the bony thorax, including a 2.4 cm lesion within the left fifth rib. A lytic lesion within the inferior right scapula is noted. There is a lytic lesion within the left aspect of the T7 vertebral body. The abdomen and pelvis will be reported separately. The study better depicted in multiple hepatic masses. There are prominent cardiophrenic angle lymph nodes. IMPRESSION: 1. No pulmonary emboli identified. 2. 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 Numerous lytic skeletal metastases, a 7 mm lingular metastasis and a pathologic left superior mediastinal lymph node. ACT 112: Negative or not required by law. Electronically signed by: Braden Andersen M.D. 11/13/2020 7:07 AM Dictated: 11/13/20 0656Transcribed: 11/13/2056 CT head/brain wo con CLINICAL HISTORY: Pt c/o AMS COMPARISON STUDY: No previous studies for comparison. TECHNIQUE: Axial CT of the brain is performed from the vertex to the skull base. IV contrast was not administered for this examination. A dose lowering technique was utilized adhering to the principles of ALARA. CT DOSE: FINDINGS: No definite acute intracranial hemorrhage, no midline shift or space occupying lesions are seen. Tellez-white matter differentiation is preserved. 1.2 x 0.7 cm slightly hyperattenuating asymmetrical lesion is seen within right basal ganglia (series 2 image 16). Mild diffuse atrophic changes of brain parenchyma are seen. Prominent hyperostosis of the calvarium seen. No definite acute depressed skull fractures demonstrated. Visualized paranasal sinuses and mastoid air cells are patent and well-aerated. IMPRESSION: No definite acute intracranial hemorrhage, no midline shift or space occupying lesions. Questionable hyperattenuating lesion at the right basal ganglia, incompletely evaluated on this exam. Further evaluation with MRI of the brain is suggested. Atrophic changes of brain parenchyma. Prominent cranial hyperostosis, most likely benign however sometimes this condition could be associated with systemic disease. ACT 112: Negative or not required by law. The above report was generated using voice recognition software. It may contain grammatical, syntax or spelling errors. Electronically signed by: Mariah German DO 11/13/2020 7:35 AM Dictated: 11/13/20724Transcribed: 11/13/20724 MR brain wo/w con HISTORY: 80 years-old Female abd CT, lesion R basal ganglia, newly dx liver mas, screening study in a patient with numerous hepatic lesions and lytic skeletal metastasis. Screening study for possible intracranial metastasis. COMPARISON: Head CT of same day. TECHNIQUE: Multiplanar multisequence MRI of the brain was obtained both with and without the use of 6.0 mL Gadavist. FINDINGS: There is no restricted diffusion to suggest acute or subacute infarct. Study is mildly motion degraded. No acute intracranial hemorrhage, midline shift, abnormal extra-axial collection, hydrocephalus or intracranial mass. Calcifications of the falx cerebri. Hyperostosis frontalis interna. Age-related involutional changes. Mild scattered T2/FLAIR hyperintensities throughout the white matter are suggestive of chronic microvascular ischemic disease. No mass or lesion identified in the right caudate nucleus to correlate with the questioned lesion on comparison head CT. There is a 1.4 x 1.7 x 1.3 cm enhancing calvarial lesion of the left frontal bone on image 96 series of 13 which demonstrates cortical breakthrough of the inner table of the calvarium and causes minimal mass effect upon the adjacent left frontal lobe. This lesion is T2 intermediate in signal without restricted diffusion and demonstrates decreased T1 signal. No abnormal intracranial enhancement. Heterogeneity of the left parietal calvarium near the vertex on image 106 of series 13 may correlate with an additional enhancing lesion. The paranasal sinuses and major arterial flow voids are patent. The mastoid air cells and paranasal sinuses are clear. Prior bilateral lens repair. Unremarkable soft tissues. IMPRESSION: 1. No acute intracranial abnormality. 2. Enhancing 1.7 cm area of marrow replacement involves the left frontal calvarium and demonstrates cortical breakthrough involving the inner table of the skull resulting in minimal mass effect upon the adjacent left frontal lobe. This is suggestive of osseous metastatic disease. 3. No intra-axial metastatic lesions identified. ACT 112: Negative or not required by law. The above report was generated using voice recognition software. It may contain grammatical, syntax or spelling errors. Dictated: 11/13/2020 1:14 PM Transcribed: 11/13/2020 2:08 PM Ivis [id number] [email or web address] Electronically signed by: Mariano Fleming M.D. 11/13/2020 3:52 PM Dictated: 11/13/20 1314Transcribed: 11/13/20 1408 Hospital Course (1) Liver mass: (2) Metastatic disease: (3) Common bile duct stone: (4) Elevated LFTs: This is an 80 yr old F who has a significant PMH of alzhemier, HTN, HLD who presents to ED 2/2 to R sided rib pain x 2-3 weeks. Newly dx large liver mass per abdominal CT: large hypodense mass centered within the anterior segment of the right hepatic lobe and the medial segment of the left hepatic lobe that measures 8.5 x 7.2 cm. There are numerous smaller satellite lesions. Also noted is dilated moderate intrahepatic biliary ductal dilatation, greater within the left hepatic lobe. There is a 4 mm calculus within the distal common bile duct. Multiple lytic skeletal lesions are noted, including a lytic lesion within the right ischial tuberosity as well as a 2.2 cm lytic lesion within the right iliac bone. Numerous lytic lesions within the bony thorax including a 2.4 cm lesion within the left rib, lytic lesion within the inferior right scapula, left aspect of T7 vertebral body, multiple retroperitoneal lymph nodes, prominent cardiophrenic lymph nodes, pathologic left superior mediastinal adenopathy. CT head concerning for possible lesion to R basal ganglia and cranial hyperostosis recommending MRI. MRI head showed no acute intracranial abnormality. Enhancing 1.7 cm area of marrow replacement involves the left frontal calvarium and demonstrates cortical breakthrough involving the inner table of the skull resulting in minimal mass effect upon the adjacent left frontal lobe. This is suggestive of osseous metastatic disease. GI on board S/P Endoscopic Retrograde Cholangiopancreatography and EGD perfomed by Dr. Frye Liver enzymes trending down with AST from 191 to 124, ALT from 489 to 363 and ALK phos from 523 to 480 several liver masses seen in addition to portal lymphadenopathy Fine-needle aspiration was performed from one of the liver maps is in addition to the portal lymph node. Removal of a common bile duct stone during te ERCP with no biliary stent placed, but PD stent placed gastro recommended to continue antibiotic coverage for total of 7 days Tolerated clear liquid diet and advanced to low fiber diet Avoid anticoagulants antiplatelet agents for 1 week post sphincterotomy Patient will need outpatient referral to medical oncology KUB in 1 month to ensure passage of the pancreatic stent Continue lidocaine patch, tramadol and tylenol prn for the pain Will need to check Liver enzymes in 1 week Ok from GI standpoint to discharge home Will need referral to Oncology Follow up with GI outpatient to discuss about the biopsy result Skull lesion MRI head showed enhancing 1.7 cm area of marrow replacement involves the left frontal calvarium and demonstrates cortical breakthrough involving the inner table of the skull resulting in minimal mass effect upon the adjacent left frontal lobe. This is suggestive of osseous metastatic disease. MRI finding discussed with patient and at bedside (5) Hypertension: continue lisinopril with parameters (6) Mild cognitive impairment: mental status waxes and wanes, currently A&O x 3 continue aricept and memantine pt follows [facility] (7) DVT prophylaxis: Hold on SQ Lovenox due to recent ERCP and PD stent placed Dispo: Possible discharge today PCP: Percy FULL CODE Total Time Total Time Spent Total Time Spent (In Minutes): 40 minutes Discharge Plan Discharge Items Patient Disposition: Home - Self-Care Reason For Visit: NEW LIVER MAS W/EVIDENCE OF METS, CONFUSION Discharge Diagnosis: (1) Liver mass: (2) Common bile duct stone: (3) Elevated Liver Enzymes (4) Skull lesion (5) Hypertension: (6) Mild cognitive impairment: Activity: Resume your previous activity Non-emergency contact: Primary Care Provider, Insole And Outsole Preparer and Oncologist Call non-emergency contact if: you have any medication questions Follow-up/Referrals: Faustino Greer DO [Primary Care Provider] - (Date & Time 11/20/2020 11:20 AM Provider DO Yamile Reyes [facility] ) Diet: Regular Addtl Attending Provider Instructions: Follow up with your primary care provider Dr. Greer on 11/20/2020 11:20 AM @ the [facility] Follow up with gastroenterology Dr. Frye to discuss the liver mass biopsy Follow up with medical Oncology for further evaluation ( Your provider will refer you) Check CMP in 1 week to monitor your liver enzymes Complete the course of the antibiotic with Augmentin Avoid any NSAID such as motrin, aleve, naproxen, ibuprofen, aspirin, advil,... for [address] Frye will order a special xray of the abdomen in 1 month to ensure passage of the pancreatic stent fall precaution Pending Studies at Discharge: Yes Studies:: Liver mass biopsy Stand-Alone Forms: My [employer], Smoking Cessation Medications and DC Order Prescriptions: New amoxicillin-pot clavulanate [Augmentin] 875-125 mg Tablet 1 tab PO BID 5 Days Qty: 10 RF: 0 Continued donepezil 10 mg tablet 5 mg PO DAILY RF: 0 omeprazole 40 mg capsule,delayed release(DR/EC) 40 mg PO DAILY RF: 0 lisinopril 10 mg tablet 10 mg PO DAILY RF: 0 memantine 5 mg tablet 5 mg PO BID RF: 0 famotidine 20 mg Tablet 20 mg PO BID RF: 0 folic acid 1 mg tablet 1 mg PO DAILY RF: 0 cholecalciferol (vitamin D3) 25 mcg (1,000 unit) Tablet 25 mcg PO DAILY RF: 0 Discharge Orders: Discharge Order (Routine); Ordered 11/15/20 Ordered By: Maranda Castillo Admission Data Admit Date/Time: 11/13/20 08:35 Attending Provider: Maranda Castillo Admit Provider: Rajat Vega Primary Care Provider: Faustino Greer Other Providers: Rajat Vega ; Sandi Frye ; Davi Lebron Other Interventions: Discharge Summary Assessment (RN) Last Done: 11/15/20 15:13
--- NOTE | 2020-11-23 08:13 | Coding Query ---
PATHOLOGY To promote full compliance with coding requirements relating to patient care, physician participation is requested in all cases of concrete pump operator helper uncertainty. Please assist us with the question(s) below: Please review the Pathology report and please document any relevant diagnosis(es) below: Diagnosis(es): liver masses Thank you Marie LEMUS
== END 2020-11-15 16:32 | disposition home or self-care (01) | DRG 421 ==
LOC: ED 05:27 → SUATTDRO 08:35 → 2N 08:35

== ENCOUNTER 2020-11-27 14:27 | Inpatient (IN) ==
[2020-11-27] MEDS ORDERED: SODIUM CHLORIDE 0.9% 1000ML 1,000 ML IV SCH (15:30)
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
[2020-11-27 16:08] LABS: Basophils # (auto) 0.04 K/uL (0-0.2); Basophils % (auto) 0.2 %; Eosinophils % (auto) 0.6 %; Hematocrit (blood only) 33.1 % (37-47); Hemoglobin 10.8 g/dL (12.0-16.0); Immature Granulocytes # (auto) 0.33 K/uL (0.00-0.02); Immature Granulocytes % (auto) 2.1 %; Lymphocytes # (auto) 0.91 K/uL (1.2-3.4); Lymphocytes % (auto) 5.7 %; Mean Corpuscular Hemoglobin 29.4 pg (25-34); Mean Corpuscular Hgb Conc 32.6 g/dL (32-36); Mean Corpuscular Volume 90.2 fL (80-100); Monocytes # (auto) 1.74 K/uL (0.11-0.59); Monocytes % (auto) 10.8 %; Neutrophils # (auto) 12.94 K/uL (1.4-6.5); Neutrophils % (auto) 80.6 %; Platelet Count 481 K/uL (130-400); RDW Coefficient of Variation 14.6 % (11.5-14.5); RDW Standard Deviation 48.1 fL (36.4-46.3); Red Blood Count 3.67 M/uL (4.2-5.4); White Blood Count 16.06 K/uL (4.8-10.8)
[2020-11-27 16:22] LABS: Prothrombin Time 10.5 Seconds (9.0-12.0)
--- NOTE | 2020-11-27 16:23 | CT Scan Report ---
CT OF THE HEAD WITHOUT CONTRAST CLINICAL HISTORY: Weakness. History of metastatic disease. COMPARISON STUDY: Head CT and MRI of the brain November 13, 2020. CT DOSE: 638.56 mGycm TECHNIQUE: Helical axial images of the head were obtained without IV contrast. Automated exposure con trol was utilized for the study. A dose lowering technique was utilized adhering to the principles o f ALARA. FINDINGS: No acute intracranial hemorrhage is present. The ventricular system is normal. Basal cister ns are patent. There are no extra axial fluid collections. There are no findings to suggest acute dur al sinus thrombosis or acute territorial infarct. Note is again made of a lytic lesion within the inn er table of the left frontal bone. This has increased in size since CT of November 13, 2020. The bony defe ct now measures 2.1 cm. It previously measured 1.3 cm. No additional calvarial lesions are noted. Quan varial thickening is again noted. IMPRESSION: 1. No acute intracranial findings. 2. 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 ACT 112: Negative or not required by law. Electronically signed by: Braden Andersen M.D. 11/27/2020 4:21 PM
[2020-11-27 16:40] LABS: Alanine Aminotransferase 579 U/L (12-78); Albumin Level 2.1 gm/dl (3.4-5.0); Aspartate Aminotransferase 375 U/L (15-37); BUN Creatinine Ratio 31.8 (10-20); Blood Urea Nitrogen 23 mg/dl (7-18); Calcium 11.3 mg/dl (8.5-10.1); Carbon Dioxide 26 mmol/L (21-32); Chloride 97 mmol/L (98-107); Creatinine Clr Calc Pharmacy 58.2 ml/min; Est GFR (African American) 91.7 ml/min; Est GFR (Non-African American) 79.1 ml/min; Glucose 114 mg/dl (70-99); Magnesium 2.1 mg/dl (1.8-2.4); Potassium 4.3 mmol/L (3.5-5.1); Sodium 130 mmol/L (136-145)
--- NOTE | 2020-11-27 16:40 | XRay Report ---
XR chest 1V portable CLINICAL HISTORY: weakness COMPARISON STUDY: Chest CT November 13, 2020. FINDINGS: Lung volumes are mildly diminished. There is no pneumothorax or pleural effusion. There is no consolidation or evidence for pulmonary edema. Mild cardiomegaly is noted. Lytic skeletal lesions are better depicted on prior chest CT. Minimal left basilar opacity favors atelectasis. IMPRESSION: 1. No acute cardiopulmonary findings. 2. Lytic skeletal metastases better depicted on prior chest CT. ACT 112: Negative or not required by law. Electronically signed by: Braden Andersen M.D. 11/27/2020 4:38 PM
[2020-11-27 16:47] LABS: Albumin Globulin Ratio 0.5 (0.9-2); Alkaline Phosphatase 644 U/L (45-117); Bilirubin,Total 3.9 mg/dl (0.2-1); Globulin 4.2 gm/dl (2.5-4.0); Phosphorus 2.2 mg/dl (2.5-4.9); Thyroid Stimulating Hormone 0.987 uIu/ml (0.300-4.500); Total Protein 6.3 gm/dl (6.4-8.2); Troponin I < 0.015 ng/ml (0-0.045)
[2020-11-27] MEDS ORDERED: PIPERACILL/TAZOBAC CONSULT ACTIVE PRN (17:08)
[2020-11-27] MEDS ORDERED: PIPERACILLIN/TAZOBACTAM 4.5 GM/120 ML BAG IV ONE (17:08)
--- NOTE | 2020-11-27 17:57 | Electrocardiogram Report ---
Test Reason : Blood Pressure : / mmHG Vent. Rate : 101 BPM Atrial Rate : 101 BPM P-R Int : 134 ms QRS Dur : 074 ms QT Int : 304 ms P-R-T Axes : 036 -23 -05 degrees QTc Int : 394 ms Sinus tachycardia Voltage criteria for left ventricular hypertrophy Possible Lateral infarct , age undetermined Abnormal ECG When compared with ECG of 13-NOV-2020 06:45, Borderline criteria for Lateral infarct are now Present Confirmed by Roberto Leon ([id number]) on 11/27/2020 5:57:19 PM Referred By: Faustino Greer Confirmed By:Jaun Leon
[2020-11-27] MEDS ORDERED: KETOROLAC TROMETHAMINE 15 MG/ML VIAL IV PRN (19:04)
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
[2020-11-27 20:03] LABS: Appearance Urine Clear (Clear); Bacteria Urine Automated Negative (Negative); Blood Urine Negative (Negative); Color Urine Dark Yellow; Glucose Urine UA Negative (Negative); Ketones Urine Negative (Negative); Leukocyte Esterase Urine 1+ (Negative); Nitrite Urine Negative (Negative); Protein Urine Trace (Negative); RBC Urine Automated 0-4 /hpf (0-4); Specific Gravity Urine 1.027 (1.000-1.030); Urobilinogen Urine Negative (Negative); pH Urine 5.5 (4.5-7.5)
[2020-11-27] MEDS ORDERED: ONDANSETRON INJ 2 MG/ML 2 ML VIAL IV PRN (20:06)
[2020-11-27] MEDS ORDERED: POLYETHYLENE (MIRALAX) 17 GM PACK PO PRN (20:06)
[2020-11-27 20:15] LABS: Bilirubin Urine 2+ (Negative)
[2020-11-27] MEDS: SODIUM CHLORIDE 0.9% 1000ML 1,000 ML IV SCH (20:19)
[2020-11-27] MEDS: POT PHOSPHATE MONOBASIC W/ SOD TAB PO SCH (22:00)
[2020-11-27] MEDS: PIPERACILLIN/TAZOBACTAM 3.375 GM in DEXTROSE 5% 100 ML IV SCH (22:00)
[2020-11-27] MEDS: LIDOCAINE 5% 1 PATCH TD SCH (22:00)
[2020-11-27] MEDS: HEPARIN SOD 5,000 UNIT/0.5 ML VIAL SQ SCH (22:01)
[2020-11-27] MEDS: FAMOTIDINE 20 MG TAB PO SCH (22:01)
[2020-11-28] MEDS: HEPARIN SOD 5,000 UNIT/0.5 ML VIAL SQ SCH ×3 (06:11→20:52)
[2020-11-28] MEDS: PIPERACILLIN/TAZOBACTAM 3.375 GM in DEXTROSE 5% 100 ML IV SCH ×3 (06:11→20:52)
[2020-11-28 06:40] LABS: Hematocrit (blood only) 29.6 % (37-47); Hemoglobin 9.8 g/dL (12.0-16.0); Mean Corpuscular Hemoglobin 29.5 pg (25-34); Mean Corpuscular Hgb Conc 33.1 g/dL (32-36); Mean Corpuscular Volume 89.2 fL (80-100); Mean Platelet Volume 9.9 fL (7.4-10.4); Platelet Count 450 K/uL (130-400); RDW Coefficient of Variation 14.8 % (11.5-14.5); RDW Standard Deviation 48.3 fL (36.4-46.3); Red Blood Count 3.32 M/uL (4.2-5.4); White Blood Count 14.57 K/uL (4.8-10.8)
[2020-11-28 07:11] LABS: BUN Creatinine Ratio 24.4 (10-20); Calcium 10.8 mg/dl (8.5-10.1); Creatinine Clr Calc Pharmacy 52.4 ml/min; Est GFR (African American) 88.7 ml/min; Est GFR (Non-African American) 76.5 ml/min
[2020-11-28 07:44] LABS: Albumin Globulin Ratio 0.5 (0.9-2); Globulin 4.3 gm/dl (2.5-4.0); Total Protein 6.3 gm/dl (6.4-8.2)
--- NOTE | 2020-11-28 08:32 | Magnetic Resonance Report ---
MR MRCP HISTORY: Hepatic mass. hyperbilirubinemia, eval for obstr TECHNIQUE: MRCP of the abdomen was performed without contrast according to standard departmental prot ocol. COMPARISON STUDY: Abdomen and pelvis CT 11/13/2020. FINDINGS: Trace right pleural effusion. Multiple hepatic masses are again noted most pronounced withi n the central liver. Dominant hepatic mass measures 8.6 cm. These demonstrate heterogeneous T2 signal . The main portal vein is mildly compressed but patent. There is moderate intrahepatic bile duct dila tation likely due to compression/involvement of this mass at the confluence of the intrahepatic ducts . The visualized distal common bile duct and main pancreatic duct appear normal in course and caliber . The proximal common bile duct is is not clearly identified. 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 Mild perinephric and peripancreatic edema is noted. There few mildly en larged retroperitoneal lymph nodes. Some of these are partially necrotic. This is consistent with add itional sites of metastatic disease. There are few scattered T2 hyperintense lesions within the ribs and spine consistent with metastatic foci. The visualized abdominal aorta and IVC are patent. The adr enal glands are unremarkable. There are few punctate stones within the gallbladder. No hydronephrosis . The spleen is unremarkable. Subcentimeter cystic lesion within the uncinate process of the pancreas favors a side branch IPMN. IMPRESSION: 1. Multiple hepatic masses are again noted with the dominant mass in the central liver measuring 8.6 cm. These lesions compress/invade the central bile ducts resulting in moderate intrahepatic bile duct dilatation. Therefore, these multiple hepatic masses favor a cholangiocarcinoma. Metastatic disease or hepatocellular carcinoma could also have a similar appearance. 2. The previously described distal common bile duct stone is not identified. 3. Trace right pleural effusion. 4. Multiple skeletal metastases are again noted. 5. Cholelithiasis. ACT 112: Negative or not required by law. Electronically signed by: Kendrick Pryor M.D. 11/28/2020 8:30 AM
[2020-11-28] MEDS: SODIUM CHLORIDE 0.9% 1000ML 1,000 ML IV SCH ×2 (09:42→20:52)
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
[2020-11-28] MEDS: FOLIC ACID 1 MG TAB PO SCH ×2 (15:40→15:59)
[2020-11-28] MEDS: CHOLECALCIFEROL 1,000 UNITS 25 MCG TAB PO SCH ×2 (15:40→15:59)
[2020-11-28] MEDS: lisinopril 10 MG TAB PO SCH ×2 (15:40→15:59)
[2020-11-28] MEDS: FAMOTIDINE 20 MG TAB PO SCH ×3 (15:40→21:00)
[2020-11-28] MEDS: PANTOprazole 40 MG TAB PO SCH ×2 (15:40→15:59)
[2020-11-28] MEDS: POT PHOSPHATE MONOBASIC W/ SOD TAB PO SCH ×5 (15:41→21:00)
--- NOTE | 2020-11-28 17:29 | Hospitalist Progress Note ---
Date of Service November 28, 2020 Assessment & Plan (1) Acute metabolic encephalopathy: This is an 80 yo F with PMH of recent diagnosed metastatic squamous cell carcinoma with liver mass, Alzheimer's, HTN, HLD and other medical problems as a below who presents with worsening confusion. In setting of recently diagnosed metastatic SCC with brain and liver involvement, possible infection, underlying Alzheimer vs possible due to tramadol CT head with no acute intracranial findings. Mild increase in size of the left frontal bone calvarial metastasis since head CT of November 13, 2020 Clinically improves (2) Metastatic squamous cell carcinoma: Recently diagnosed metastatic SCC with brain and liver involvement She was diagnosed with squamous cell carcinoma(FNA of a liver lesion and a lymph node during EUS suggested metastatic squamous cell carcinoma) with mets to the liver and brain. Has appointment with Oncology Dr. Hammonds this November 29 Notified Oncology office, will meet with family tomorrow tomorrow to discuss about the plan Pallitive care consulted for goal of care (3) Hyperbilirubinemia: (4) Elevated liver function tests: Tbili 3.9, AST 375, ALT 579 In setting of known liver mass vs stent occlusion from recent ERCP with stent placement Underwent ERCP on 11/14/2020 - evidence of choledocholithiasis was found with biliary sphincterotomy and balloon extraction as well as stent placement in pancreatic duct MRCP showed multiple hepatic masses are again noted with the dominant mass in the central liver measuring 8.6 cm. These lesions compress/invade the central bile ducts resulting in moderate intrahepatic bile duct dilatation. Therefore, these multiple hepatic masses favor a cholangiocarcinoma. Metastatic disease or hepatocellular carcinoma could also have a similar appearance. The previously described distal common bile duct stone is not identified. Gastro on board and no plan to repeat the ERCP since elevating LFTs appear to be caused more by tumor burden then ductal obstruction. Resumed full liquid diet (5) Sepsis: Meeting sepsis criteria with tachycardia, leukocytosis of 16 and lactic acid of 2.5, possible GI source Non-toxic appearance, afebrile, BP stable On empiric Zosyn given recent choledocholithiasis with stent placement - continue Continue gentle IV fluids Stable (6) Hypercalcemia: Ca elevated at 11.3, now 10.8 Continue IV fluids Obtain ionized Ca in AM (7) Generalized weakness: In setting of metastatic cancer Fall precautions, PT/OT evaluation Need to optimize nutrition-dietitian consulted, boost TIDM, full liquids Dysphagia Nurse said pt choked on her pills Will consult speech DVT Ppx: SQ heparin Code status: FULL PCP: Percy Dispo: Continue monitor closely Admission and Anticipated Discharge Date Admission Date: November 27, 2020 Subjective Pt was seen and examined for follow confusion Lying in bed with no distress with at bedside Pt looks comfortable in bed Nurse said that pt chokes on her pills today Pt denies any chest pain, palpitation, dizziness and fever Review of Systems Review of Systems: All systems reviewed & are unremarkable except as noted in Subjective Physical Exam Physical Exam: General- No acute distress Head- atraumatic Eyes- PERRL, EOMI, ENT- oropharynx clear Neck- supple, no JVD Lungs- clear to auscultation Heart- regular rhythm; no murmur Abdomen- normal bowel sounds, soft, nontender Extremities- no calf tenderness Neuro- alert, oriented x 3; PERRL, EOMI; no facial palsy; no dysarthria Skin- warm & dry Results & Data Results & Data ([facility]) Vital Signs (Past 12 Hours) Vital Signs Temp Pulse Pulse Resp BP Pulse Ox 11/28/20 16:30 103 H 11/28/20 11:38 37.1 C 104 H 20 161/82 H 97 11/28/20 07:55 36.9 C 100 H 18 161/76 H 97 11/28/20 07:19 103 H
[2020-11-28] MEDS: LIDOCAINE 5% 1 PATCH TD SCH (20:52)
[2020-11-29] MEDS: PIPERACILLIN/TAZOBACTAM 3.375 GM in DEXTROSE 5% 100 ML IV SCH ×3 (05:57→23:40)
[2020-11-29] MEDS: HEPARIN SOD 5,000 UNIT/0.5 ML VIAL SQ SCH ×3 (05:57→23:40)
[2020-11-29 06:39] LABS: Hematocrit (blood only) 26.6 % (37-47); Hemoglobin 8.7 g/dL (12.0-16.0); Mean Corpuscular Hemoglobin 29.6 pg (25-34); Mean Corpuscular Hgb Conc 32.7 g/dL (32-36); Mean Corpuscular Volume 90.5 fL (80-100); Mean Platelet Volume 9.9 fL (7.4-10.4); Platelet Count 456 K/uL (130-400); RDW Coefficient of Variation 15.4 % (11.5-14.5); RDW Standard Deviation 50.8 fL (36.4-46.3); Red Blood Count 2.94 M/uL (4.2-5.4); White Blood Count 13.77 K/uL (4.8-10.8)
[2020-11-29 07:30] LABS: Albumin Globulin Ratio 0.4 (0.9-2); Albumin Level 1.7 gm/dl (3.4-5.0); BUN Creatinine Ratio 23.2 (10-20); Bilirubin,Total 6.4 mg/dl (0.2-1); Calcium 11.7 mg/dl (8.5-10.1); Creatinine Clr Calc Pharmacy 56.2 ml/min; Est GFR (African American) 95.3 ml/min; Est GFR (Non-African American) 82.2 ml/min; Potassium 3.3 mmol/L (3.5-5.1); Total Protein 5.7 gm/dl (6.4-8.2)
[2020-11-29] MEDS: POT PHOSPHATE MONOBASIC W/ SOD TAB PO SCH ×4 (07:46→23:40)
[2020-11-29] MEDS: CHOLECALCIFEROL 1,000 UNITS 25 MCG TAB PO SCH (07:47)
[2020-11-29] MEDS: lisinopril 10 MG TAB PO SCH (07:47)
[2020-11-29] MEDS: PANTOprazole 40 MG TAB PO SCH (07:47)
[2020-11-29] MEDS: FAMOTIDINE 20 MG TAB PO SCH ×2 (07:47→23:39)
[2020-11-29] MEDS: FOLIC ACID 1 MG TAB PO SCH (08:00)
[2020-11-29] MEDS: POTASSIUM CHLORIDE / WTR 10 MEQ/100 ML PLCT IV SCH ×2 (11:41→12:57)
[2020-11-29] MEDS: SODIUM CHLORIDE 0.9% 1000ML 1,000 ML IV SCH (14:19)
--- NOTE | 2020-11-29 16:39 | Hospitalist Progress Note ---
Date of Service November 29, 2020 Assessment & Plan (1) Acute metabolic encephalopathy: 80 yo F with PMH of recent diagnosed metastatic squamous cell carcinoma with liver mass, Alzheimer's, HTN, HLD and other medical problems as a below who presents with worsening confusion. In setting of recently diagnosed metastatic SCC with brain and liver involvement, possible infection, underlying Alzheimer vs possible due to tramadol CT head with no acute intracranial findings. Mild increase in size of the left frontal bone calvarial metastasis since head CT of November 13, 2020 Clinically improves (2) Metastatic squamous cell carcinoma: Recently diagnosed metastatic SCC with brain and liver involvement She was diagnosed with squamous cell carcinoma(FNA of a liver lesion and a lymph node during EUS suggested metastatic squamous cell carcinoma) with mets to the liver and brain. Has appointment with Oncology Dr. Hammonds this November 29 Palliative care consulted for goal of care Plan to meet with oncology today to discuss about plan (3) Hyperbilirubinemia: (4) Elevated liver function tests: Tbili 3.9, AST 375, ALT 579 In setting of known liver mass vs stent occlusion from recent ERCP with stent placement Underwent ERCP on 11/14/2020 - evidence of choledocholithiasis was found with biliary sphincterotomy and balloon extraction as well as stent placement in pancreatic duct MRCP showed multiple hepatic masses are again noted with the dominant mass in the central liver measuring 8.6 cm. These lesions compress/invade the central bile ducts resulting in moderate intrahepatic bile duct dilatation. Therefore, these multiple hepatic masses favor a cholangiocarcinoma. Metastatic disease or hepatocellular carcinoma could also have a similar appearance. The previously described distal common bile duct stone is not identified. Gastro on board and no plan to repeat the ERCP since elevating LFTs appear to be caused more by tumor burden then ductal obstruction. Resumed full liquid diet (5) Sepsis: Meeting sepsis criteria with tachycardia, leukocytosis of 16 and lactic acid of 2.5, possible GI source Non-toxic appearance, afebrile, BP stable On empiric Zosyn given recent choledocholithiasis with stent placement - continue Continue gentle IV fluids Stable (6) Hypercalcemia: Ca elevated at 11.3, now 10.8 Continue IV fluids Obtain ionized Ca in AM (7) Generalized weakness: In setting of metastatic cancer Fall precautions, PT/OT evaluation Need to optimize nutrition-dietitian consulted, boost TIDM, full liquids Dysphagia Nurse said pt choked on her pills speech on board recommended minced and moist diet Aspiration precaution DVT Ppx: SQ heparin Code status: FULL PCP: Percy Dispo: Continue monitor closely Admission and Anticipated Discharge Date Admission Date: November 27, 2020 Subjective Pt was seen and examined for follow confusion Lying in bed with no distress with daughter and at bedside Pt looks comfortable in bed Nurse said that pt was having excruciated abdominal pain Family would like her to get something to help with the pain Family had an office visit with Oncology today to discuss about her prognosis and plan Pt denies any chest pain, palpitation, dizziness and fever Review of Systems Review of Systems: All systems reviewed & are unremarkable except as noted in Subjective Physical Exam Physical Exam: General- No acute distress Head- atraumatic Eyes- PERRL, EOMI, ENT- oropharynx clear Neck- supple, no JVD Lungs- clear to auscultation Heart- regular rhythm; no murmur Abdomen- normal bowel sounds, soft, nontender Extremities- no calf tenderness Neuro- alert, oriented x 3; PERRL, EOMI; no facial palsy; no dysarthria Skin- warm & dry Results & Data Results & Data ([facility]) Vital Signs (Past 12 Hours) Vital Signs Temp Pulse Pulse Pulse Resp BP Pulse Ox 11/29/20 15:22 36.7 C 89 19 133/71 95 11/29/20 07:58 85 11/29/20 07:41 36.9 C 84 16 134/74 93
[2020-11-29] MEDS ORDERED: MoRPHine SULFATE 2 MG/ML CARP IV ONE (18:22)
--- NOTE | 2020-11-29 20:08 | Communication Note ---
Date of Service: November 29, 2020 Family requesting for CODE STATUS to be deescalated to DNR in preparation of possible transition to comfort measures tomorrow a.m. Patient requests a.m. provider to call him in the morning prior to PCU transfer out for comfort measures.
[2020-11-30] MEDS: LIDOCAINE 5% 1 PATCH TD SCH ×2 (00:11→21:51)
[2020-11-30] MEDS: SODIUM CHLORIDE 0.9% 1000ML 1,000 ML IV SCH ×2 (00:13→09:05)
[2020-11-30] MEDS ORDERED: OLANZapine 10 MG/2.1 ML SDV IM PRN (04:58)
[2020-11-30] MEDS: PIPERACILLIN/TAZOBACTAM 3.375 GM in DEXTROSE 5% 100 ML IV SCH (06:39)
[2020-11-30] MEDS: HEPARIN SOD 5,000 UNIT/0.5 ML VIAL SQ SCH (06:39)
[2020-11-30 06:48] LABS: Hematocrit (blood only) 27.7 % (37-47); Hemoglobin 8.9 g/dL (12.0-16.0); Mean Corpuscular Hemoglobin 29.2 pg (25-34); Mean Corpuscular Hgb Conc 32.1 g/dL (32-36); Mean Corpuscular Volume 90.8 fL (80-100); Mean Platelet Volume 9.9 fL (7.4-10.4); Platelet Count 473 K/uL (130-400); RDW Coefficient of Variation 15.7 % (11.5-14.5); RDW Standard Deviation 51.8 fL (36.4-46.3); Red Blood Count 3.05 M/uL (4.2-5.4); White Blood Count 15.54 K/uL (4.8-10.8)
[2020-11-30 07:10] LABS: Albumin Globulin Ratio 0.4 (0.9-2); Albumin Level 1.7 gm/dl (3.4-5.0); BUN Creatinine Ratio 23.9 (10-20); Bilirubin,Total 7.1 mg/dl (0.2-1); Calcium 11.7 mg/dl (8.5-10.1); Est GFR (African American) 81.9 ml/min; Est GFR (Non-African American) 70.7 ml/min; Potassium 3.3 mmol/L (3.5-5.1); Total Protein 5.7 gm/dl (6.4-8.2)
[2020-11-30] MEDS: FAMOTIDINE 20 MG TAB PO SCH ×2 (08:00→21:32)
[2020-11-30] MEDS: POT PHOSPHATE MONOBASIC W/ SOD TAB PO SCH (08:01)
[2020-11-30] MEDS: lisinopril 10 MG TAB PO SCH (08:01)
[2020-11-30] MEDS: PANTOprazole 40 MG TAB PO SCH (08:02)
[2020-11-30] MEDS: FOLIC ACID 1 MG TAB PO SCH (08:02)
[2020-11-30] MEDS: CHOLECALCIFEROL 1,000 UNITS 25 MCG TAB PO SCH (09:04)
[2020-11-30] MEDS ORDERED: LORazepam 0.5 MG TAB PO PRN (11:24)
[2020-11-30] MEDS ORDERED: ONDANSETRON INJ 2 MG/ML 2 ML VIAL IV PRN (11:24)
[2020-11-30] MEDS ORDERED: ONDANSETRON 4 MG OD TAB SL PRN (11:24)
[2020-11-30] MEDS ORDERED: LORazepam 0.5 MG/1 ML VIAL IV PRN (11:24)
[2020-11-30] MEDS: MoRPHine SULFATE 5 MG/0.25 ML UDP PO PRN ×2 (12:12→16:36)
--- NOTE | 2020-11-30 13:13 | Palliative Care Progress Note ---
Date of Service November 30, 2020 Assessment & Plan (1) Palliative care encounter: I talked with Leslie's granddaughter at bedside and later with her at bedside. They have noticed improved pain relief with morphine. We talked about Leslie's dementia potentially limiting her ability to articulate her pain as well as concern about gaps in dosing as she is not able to anticipate a need for medication as pain escalates. We discussed routine dosing of roxanol to achieve steady level of analgesia and they would prefer this route. Will order routine dosing. We discussed what to expect with transfer to SNF. Anticipate discharge to SNF with hospice care. (2) Metastatic squamous cell carcinoma: Admission and Anticipated Discharge Date Admission Date: November 27, 2020 Subjective Awake and alert. She had been complaining of abdominal pain earlier. She tells me that its hurting "a little". Appetite is poor. She denies nausea. Review of Systems Review of Systems: [place] Symptom Assessment Scale Pain 1/3 Dyspnea 0/3 Anxiety 0/3 Fatigue 2/3 Nausea 0/3 Palliative Performance Score 40% Physical Exam Constitutional: no acute distress Respiratory: normal respiratory effort; no labored breathing Gastrointestinal (Abdomen): Inspection/Auscultation: + abdomen distended mild LUQ tenderness to palpation Skin: + jaundice Neurologic: awake and + confused Results & Data ([facility]) Vital Signs (Past 12 Hours) Vital Signs Temp Pulse Resp BP Pulse Ox 11/30/20 07:32 98.4 F 92 H 22 158/86 H 93 11/30/20 04:46 98.8 F 94 H 18 116/69 94 PG Care Time/CCT Total # of Minutes Spent Total Time Spent with Patient: Total time spent is greater than 50% in coordination of care (as documented) at patient's floor/unit and/or counseling patient: total time spent 45 minutes with more than 50% of time spent on symptom management, family education and support Coding Level of Care Code 11482 Subseq Hosp Care Lvl 3 Diagnoses Palliative care encounter Z51.5 Metastatic squamous cell carcinoma C79.9 Time Spent (min) 45
--- NOTE | 2020-11-30 17:53 | Hospitalist Progress Note ---
Date of Service November 30, 2020 Assessment & Plan (1) Acute metabolic encephalopathy: 80 yo F with PMH of recent diagnosed metastatic squamous cell carcinoma with liver mass, Alzheimer's, HTN, HLD and other medical problems as a below who presents with worsening confusion. In setting of recently diagnosed metastatic SCC with brain and liver involvement, possible infection, underlying Alzheimer vs possible due to tramadol CT head with no acute intracranial findings. Mild increase in size of the left frontal bone calvarial metastasis since head CT of November 13, 2020 After meeting with oncology yesterday, family ready to transition the patient to comfort care only (2) Metastatic squamous cell carcinoma: Recently diagnosed metastatic SCC with brain and liver involvement She was diagnosed with squamous cell carcinoma(FNA of a liver lesion and a lymph node during EUS suggested metastatic squamous cell carcinoma) with mets to the liver and brain. Has appointment with Oncology Dr. Hammonds this November 29 Palliative care consulted for goal of care Patient was transition to comfort care only (3) Hyperbilirubinemia: (4) Elevated liver function tests: Tbili 3.9, AST 375, ALT 579 In setting of known liver mass vs stent occlusion from recent ERCP with stent placement Underwent ERCP on 11/14/2020 - evidence of choledocholithiasis was found with biliary sphincterotomy and balloon extraction as well as stent placement in pancreatic duct MRCP showed multiple hepatic masses are again noted with the dominant mass in the central liver measuring 8.6 cm. These lesions compress/invade the central bile ducts resulting in moderate intrahepatic bile duct dilatation. Therefore, these multiple hepatic masses favor a cholangiocarcinoma. Metastatic disease or hepatocellular carcinoma could also have a similar appearance. The previously described distal common bile duct stone is not identified. Gastro on board and no plan to repeat the ERCP since elevating LFTs appear to be caused more by tumor burden then ductal obstruction. Resumed diet (5) Sepsis: Meeting sepsis criteria with tachycardia, leukocytosis of 16 and lactic acid of 2.5, possible GI source Non-toxic appearance, afebrile, BP stable On empiric Zosyn given recent choledocholithiasis with stent placement - continue Continue gentle IV fluids Stable (6) Hypercalcemia: Ca elevated at 11.3, now 10.8 Continue IV fluids Obtain ionized Ca in AM (7) Generalized weakness: In setting of metastatic cancer Fall precautions, PT/OT evaluation Need to optimize nutrition-dietitian consulted, boost TIDM, full liquids Dysphagia Nurse said pt choked on her pills speech on board recommended minced and moist diet Aspiration precaution DVT Ppx: SQ heparin Code status: DNR/DNI PCP: Percy Dispo: Comfort care only Admission and Anticipated Discharge Date Admission Date: November 27, 2020 Subjective Pt was seen and examined for follow Sitting in bed with no distress with daughter at bedside Pt looks comfortable sitting Spoke to daughter today and she said the family is ready to transition to comfort care only Pt denies any chest pain, palpitation, dizziness and fever Review of Systems Review of Systems: All systems reviewed & are unremarkable except as noted in Subjective Physical Exam Physical Exam: General- No acute distress Head- atraumatic Eyes- PERRL, EOMI, ENT- oropharynx clear Neck- supple, no JVD Lungs- clear to auscultation Heart- regular rhythm; no murmur Abdomen- normal bowel sounds, soft, nontender Extremities- no calf tenderness Neuro- alert, oriented x 3; PERRL, EOMI; no facial palsy; no dysarthria Skin- warm & dry Results & Data Results & Data ([facility]) Vital Signs (Past 12 Hours) Vital Signs Temp Pulse Resp BP Pulse Ox 11/30/20 07:32 36.9 C 92 H 22 158/86 H 93
[2020-12-01] MEDS: MoRPHine SULFATE 5 MG/0.25 ML UDP PO PRN ×2 (09:34→17:03)
[2020-12-01] MEDS: PANTOprazole 40 MG TAB PO SCH (10:33)
[2020-12-01] MEDS: FAMOTIDINE 20 MG TAB PO SCH ×2 (10:33→23:35)
--- NOTE | 2020-12-01 18:52 | Hospitalist Progress Note ---
Date of Service December 01, 2020 Assessment & Plan (1) Acute metabolic encephalopathy: 80 yo F with PMH of recent diagnosed metastatic squamous cell carcinoma with liver mass, Alzheimer's, HTN, HLD and other medical problems as a below who presents with worsening confusion. In setting of recently diagnosed metastatic SCC with brain and liver involvement, possible infection, underlying Alzheimer vs possible due to tramadol CT head with no acute intracranial findings. Mild increase in size of the left frontal bone calvarial metastasis since head CT of November 13, 2020 After meeting with oncology, family ready to transition the patient to comfort care only (2) Metastatic squamous cell carcinoma: Recently diagnosed metastatic SCC with brain and liver involvement She was diagnosed with squamous cell carcinoma(FNA of a liver lesion and a lymph node during EUS suggested metastatic squamous cell carcinoma) with mets to the liver and brain. Has appointment with Oncology Dr. Hammonds this November 29 Palliative care consulted for goal of care Patient was transition to comfort care only (3) Hyperbilirubinemia: (4) Elevated liver function tests: Tbili 3.9, AST 375, ALT 579 In setting of known liver mass vs stent occlusion from recent ERCP with stent placement Underwent ERCP on 11/14/2020 - evidence of choledocholithiasis was found with biliary sphincterotomy and balloon extraction as well as stent placement in pancreatic duct MRCP showed multiple hepatic masses are again noted with the dominant mass in the central liver measuring 8.6 cm. These lesions compress/invade the central bile ducts resulting in moderate intrahepatic bile duct dilatation. Therefore, these multiple hepatic masses favor a cholangiocarcinoma. Metastatic disease or hepatocellular carcinoma could also have a similar appearance. The previously described distal common bile duct stone is not identified. Gastro on board and no plan to repeat the ERCP since elevating LFTs appear to be caused more by tumor burden then ductal obstruction. No intervention procedure since pt transition to comfort care (5) Sepsis: Meeting sepsis criteria with tachycardia, leukocytosis of 16 and lactic acid of 2.5, possible GI source Non-toxic appearance, afebrile, BP stable On empiric Zosyn given recent choledocholithiasis with stent placement - continue Continue gentle IV fluids Treatment discontinued (6) Hypercalcemia: Ca elevated at 11.3, now 10.8 Continue IV fluids Obtain ionized Ca in AM (7) Generalized weakness: In setting of metastatic cancer Fall precautions, PT/OT evaluation Need to optimize nutrition-dietitian consulted, boost TIDM, full liquids Dysphagia Nurse said pt choked on her pills speech on board recommended minced and moist diet Aspiration precaution DVT Ppx: SQ heparin Code status: DNR/DNI / Comfort care only PCP: Percy Dispo: Waiting for placement to discharge with hospice Admission and Anticipated Discharge Date Admission Date: November 27, 2020 Subjective Pt was seen and examined for follow Lying in bed with no distress with daughter at bedside Pt looks comfortable in bed Pt denies any chest pain, palpitation, dizziness and fever Review of Systems Review of Systems: All systems reviewed & are unremarkable except as noted in Subjective Physical Exam Physical Exam: General- No acute distress Head- atraumatic Eyes- PERRL, EOMI, ENT- oropharynx clear Neck- supple, no JVD Lungs- clear to auscultation Heart- regular rhythm; no murmur Abdomen- normal bowel sounds, soft, nontender Extremities- no calf tenderness Neuro- alert, oriented x 3; PERRL, EOMI; no facial palsy; no dysarthria Skin- warm & dry
[2020-12-01] MEDS: LIDOCAINE 5% 1 PATCH TD SCH (23:35)
[2020-12-02 07:39] VITALS: TEMP 98.2
[2020-12-02] MEDS: PANTOprazole 40 MG TAB PO SCH (08:49)
[2020-12-02] MEDS: MoRPHine SULFATE 5 MG/0.25 ML UDP PO PRN (10:25)
[2020-12-02] MEDS: FAMOTIDINE 20 MG TAB PO SCH ×2 (11:53→21:09)
[2020-12-02] MEDS ORDERED: MoRPHine SULFATE 5 MG/0.25 ML UDP PO PRN (12:41)
--- NOTE | 2020-12-02 14:02 | Palliative Care Progress Note ---
Date of Service December 02, 2020 Assessment & Plan (1) Abdominal pain: Morphine routine dosing with prn doses for breakthrough pain. Family would prefer that she have regular dosing to maintain consistent level of analgesia. (2) Palliative care encounter: Goal is for comfort. Plan is for discharge to SNF with hospice tomorrow. (3) Metastatic squamous cell carcinoma: Admission and Anticipated Discharge Date Admission Date: November 27, 2020 Subjective More somnolent today. Answers "a little" when asked if having pain. She points to her lower abdomen. Per her son in law, she has been eating with family encouragement. Review of Systems Review of Systems: [place] Symptom ASsessment Scale Pain 1/3 Dyspnea 0/3 Anxiety 0/3 Drowsiness 2/3 Fatigue 2/3 Palliative Performance Score 20% Physical Exam Constitutional: + lethargic ENMT: Mouth: + dry oral mucous membranes Respiratory: normal respiratory effort; no labored breathing Gastrointestinal (Abdomen): Percussion/Palpation: abdomen soft tenderness to palpation lower abdomen, hypoactive BS, LBM 6/18 Skin: + jaundice Neurologic: + confused Results & Data ([facility]) Vital Signs (Past 12 Hours) Vital Signs Temp Pulse Resp BP Pulse Ox 12/02/20 07:38 98.2 F 103 H 20 157/86 H 95 PG Care Time/CCT Total # of Minutes Spent Total Time Spent with Patient: Total time spent is greater than 50% in coordination of care (as documented) at patient's floor/unit and/or counseling patient: Coding Level of Care Code 85145 Subseq Hosp Care Lvl 2 Diagnoses Abdominal pain R10.9 Palliative care encounter Z51.5 Metastatic squamous cell carcinoma C79.9
[2020-12-02] MEDS: MoRPHine SULFATE 5 MG/0.25 ML UDP PO SCH ×3 (14:31→21:08)
--- NOTE | 2020-12-02 18:59 | Hospitalist Progress Note ---
Date of Service December 02, 2020 Assessment & Plan (1) Acute metabolic encephalopathy: 80 yo F with PMH of recent diagnosed metastatic squamous cell carcinoma with liver mass, Alzheimer's, HTN, HLD and other medical problems as a below who presents with worsening confusion. In setting of recently diagnosed metastatic SCC with brain and liver involvement, possible infection, underlying Alzheimer vs possible due to tramadol CT head with no acute intracranial findings. Mild increase in size of the left frontal bone calvarial metastasis since head CT of November 13, 2020 After meeting with oncology, family ready to transition the patient to comfort care only (2) Metastatic squamous cell carcinoma: Recently diagnosed metastatic SCC with brain and liver involvement She was diagnosed with squamous cell carcinoma(FNA of a liver lesion and a lymph node during EUS suggested metastatic squamous cell carcinoma) with mets to the liver and brain. Has appointment with Oncology Dr. Hammonds this November 29 Palliative care consulted for goal of care Patient was transition to comfort care only (3) Hyperbilirubinemia: (4) Elevated liver function tests: Tbili 3.9, AST 375, ALT 579 In setting of known liver mass vs stent occlusion from recent ERCP with stent placement Underwent ERCP on 11/14/2020 - evidence of choledocholithiasis was found with biliary sphincterotomy and balloon extraction as well as stent placement in pancreatic duct MRCP showed multiple hepatic masses are again noted with the dominant mass in the central liver measuring 8.6 cm. These lesions compress/invade the central bile ducts resulting in moderate intrahepatic bile duct dilatation. Therefore, these multiple hepatic masses favor a cholangiocarcinoma. Metastatic disease or hepatocellular carcinoma could also have a similar appearance. The previously described distal common bile duct stone is not identified. Gastro on board and no plan to repeat the ERCP since elevating LFTs appear to be caused more by tumor burden then ductal obstruction. No intervention procedure since pt transition to comfort care (5) Sepsis: Meeting sepsis criteria with tachycardia, leukocytosis of 16 and lactic acid of 2.5, possible GI source Non-toxic appearance, afebrile, BP stable On empiric Zosyn given recent choledocholithiasis with stent placement - continue Continue gentle IV fluids Treatment discontinued (6) Hypercalcemia: Ca elevated at 11.3, now 10.8 Continue IV fluids Obtain ionized Ca in AM (7) Generalized weakness: In setting of metastatic cancer Fall precautions, PT/OT evaluation Need to optimize nutrition-dietitian consulted, boost TIDM, full liquids Dysphagia Nurse said pt choked on her pills speech on board recommended minced and moist diet Aspiration precaution DVT Ppx: SQ heparin Code status: DNR/DNI / Comfort care only PCP: Percy Dispo: Waiting for placement to discharge with hospice Admission and Anticipated Discharge Date Admission Date: November 27, 2020 Subjective Pt was seen and examined for follow Lying in bed with no distress with at bedside Pt looks comfortable in bed Pt denies any chest pain, palpitation, dizziness and fever Review of Systems Review of Systems: All systems reviewed & are unremarkable except as noted in Subjective Physical Exam Physical Exam: General- No acute distress Head- atraumatic Eyes- PERRL, EOMI, ENT- oropharynx clear Neck- supple, no JVD Lungs- clear to auscultation Heart- regular rhythm; no murmur Abdomen- normal bowel sounds, soft, nontender Extremities- no calf tenderness Neuro- alert, oriented x 3; PERRL, EOMI; no facial palsy; no dysarthria Skin- warm & dry Results & Data Results & Data ([facility]) Vital Signs (Past 12 Hours) Vital Signs Temp Pulse Resp BP Pulse Ox 12/02/20 14:00 36.8 C 108 H 18 138/83 94 12/02/20 07:38 36.8 C 103 H 20 157/86 H 95
[2020-12-02] MEDS: LIDOCAINE 5% 1 PATCH TD SCH (21:07)
[2020-12-03] MEDS: MoRPHine SULFATE 5 MG/0.25 ML UDP PO SCH ×5 (01:41→18:33)
[2020-12-03] MEDS: FAMOTIDINE 20 MG TAB PO SCH (09:56)
[2020-12-03] MEDS: PANTOprazole 40 MG TAB PO SCH (09:56)
--- NOTE | 2020-12-03 12:40 | Palliative Care Progress Note ---
Date of Service December 03, 2020 Assessment & Plan (1) Abdominal pain: Controlled on routine oral morphine. Discussed with her daughter, Maggie, at bedside. Family is in agreement that they would prefer adequate pain control to her being more alert. However, we will dial back to every six hour dosing with prn available to see if she is more able to interact with family during this crucial time. (2) Rib pain on left side: (3) Palliative care encounter: I talked with Maggie at her request about prognosis which is likely days to a week or two. We talked about what to expect during that time. We talked about how hospice support will supplement her care at the [facility]. We discussed medications for comfort and Leslie's declining po intake as expected. Plan for discharge to the [facility] today with hospice to follow. (4) Metastatic squamous cell carcinoma: Admission and Anticipated Discharge Date Admission Date: November 27, 2020 Subjective Lethargic. Moans briefly with care. No po intake today. Review of Systems Review of Systems: Unobtainable due to reduced consciousness [place] Symptom Assessment Scale PainAD 0/3 Dyspnea by observation 0/3 Palliative Performance Score 20% Physical Exam Constitutional: + lethargic Respiratory: normal respiratory effort; no labored breathing Cardiovascular: Rate/Rhythm: regular rate and regular rhythm Gastrointestinal (Abdomen): Percussion/Palpation: abdomen nontender Skin: warm and dry PG Care Time/CCT Total # of Minutes Spent Total Time Spent with Patient: Total time spent is greater than 50% in coordination of care (as documented) at patient's floor/unit and/or counseling patient: total time spent 40 minutes with more than 50% of time spent on symptom management, prognosis, hospice, what to expect with her dying time. Coding Level of Care Code 46769 Subseq Hosp Care Lvl 3 Diagnoses Abdominal pain R10.9 Rib pain on left side R07.81 Palliative care encounter Z51.5 Metastatic squamous cell carcinoma C79.9
[2020-12-03 12:50] VITALS: BP 79/55; PULSE 128; O2SAT 92
[2020-12-03] MEDS: HYOSCYAMINE SULFATE 0.125 MG TAB SL PRN ×2 (14:13→16:30)
--- NOTE | 2020-12-03 17:51 | Hospitalist Progress Note ---
Date of Service December 03, 2020 Assessment & Plan (1) Acute metabolic encephalopathy: 80 yo F with PMH of recent diagnosed metastatic squamous cell carcinoma with liver mass, Alzheimer's, HTN, HLD and other medical problems as a below who presents with worsening confusion. In setting of recently diagnosed metastatic SCC with brain and liver involvement, possible infection, underlying Alzheimer vs possible due to tramadol CT head with no acute intracranial findings. Mild increase in size of the left frontal bone calvarial metastasis since head CT of November 13, 2020 After meeting with oncology, family ready to transition the patient to comfort care only (2) Metastatic squamous cell carcinoma: Recently diagnosed metastatic SCC with brain and liver involvement She was diagnosed with squamous cell carcinoma(FNA of a liver lesion and a lymph node during EUS suggested metastatic squamous cell carcinoma) with mets to the liver and brain. Has appointment with Oncology Dr. Hammonds this November 29 Palliative care consulted for goal of care Patient was transition to comfort care only (3) Hyperbilirubinemia: (4) Elevated liver function tests: Tbili 3.9, AST 375, ALT 579 In setting of known liver mass vs stent occlusion from recent ERCP with stent placement Underwent ERCP on 11/14/2020 - evidence of choledocholithiasis was found with biliary sphincterotomy and balloon extraction as well as stent placement in pancreatic duct MRCP showed multiple hepatic masses are again noted with the dominant mass in the central liver measuring 8.6 cm. These lesions compress/invade the central bile ducts resulting in moderate intrahepatic bile duct dilatation. Therefore, these multiple hepatic masses favor a cholangiocarcinoma. Metastatic disease or hepatocellular carcinoma could also have a similar appearance. The previously described distal common bile duct stone is not identified. Gastro on board and no plan to repeat the ERCP since elevating LFTs appear to be caused more by tumor burden then ductal obstruction. No intervention procedure since pt transition to comfort care (5) Sepsis: Meeting sepsis criteria with tachycardia, leukocytosis of 16 and lactic acid of 2.5, possible GI source Non-toxic appearance, afebrile, BP stable On empiric Zosyn given recent choledocholithiasis with stent placement - continue Continue gentle IV fluids Treatment discontinued (6) Hypercalcemia: Ca elevated at 11.3, now 10.8 Continue IV fluids Obtain ionized Ca in AM (7) Generalized weakness: In setting of metastatic cancer Fall precautions, PT/OT evaluation Need to optimize nutrition-dietitian consulted, boost TIDM, full liquids Dysphagia Nurse said pt choked on her pills speech on board recommended minced and moist diet Aspiration precaution DVT Ppx: SQ heparin Code status: DNR/DNI / Comfort care only PCP: Percy Dispo: Waiting for placement to discharge with hospice Admission and Anticipated Discharge Date Admission Date: November 27, 2020 Subjective Pt was seen and examined for follow Sedated with schedule Roxanol for comfort care I did not get any response from her since she was very lethargy Family said she was restlessness around 10 AM that when her last dose of Roxanol was given Patient was getting ready to transition to the [facility] on hospice/comfort care that was cancelled because we did not think she would make it It seems like she might in the next few hours Advised nurse to do suctioning as needed due to increase oral secretion Review of Systems Review of Systems: All systems reviewed & are unremarkable except as noted in Subjective Physical Exam Physical Exam: General- No acute distress Head- atraumatic Eyes- PERRL, EOMI, ENT- oropharynx clear Neck- supple, no JVD Lungs- clear to auscultation Heart- regular rhythm; no murmur Abdomen- normal bowel sounds, soft, nontender Extremities- no calf tenderness Neuro- alert, oriented x 3; PERRL, EOMI; no facial palsy; no dysarthria Skin- warm & dry Results & Data Results & Data ([facility]) Vital Signs (Past 12 Hours) Vital Signs Temp Pulse Resp BP Pulse Ox 12/03/20 12:49 36.8 C 128 H 22 79/55 L 92
--- NOTE | 2020-12-11 23:17 | Discharge Summary ---
Date of Service December 03, 2020 Admission HPI Per Admitting Provider This is an 80 yo F with PMH of recent diagnosed metastatic squamous cell carcinoma with liver mass, Alzheimer's, HTN, HLD and other medical problems as a below who presents with worsening confusion. Patient was admitted at the beginning of November 13 with R rib pain, weakness and poor appetite and was found to have large large hepatic mass with numerous satellite lesions consistent with malignancy favoring primary liver malignancy please such as cholangiocarcinoma. Underwent ERCP on 11/14/2020 and evidence of choledocholithiasis was found with biliary sphincterotomy and balloon extraction as well as stent placement in pancreatic duct. Completed 5-day course of Augmentin upon discharge. MRI of head on 11/13/2020 showed enhancing 1.7 cm area of marrow replacement involving left frontal calvarium with cortical breakthrough involving inner table of the skull resulting in minimal mass effect upon the adjacent left frontal lobe suggestive of osseous metastatic disease. Pathology from ERCP revealed squamous cell carcinoma, so primary still unclear- differential from pathologist includes cervical primary vs adenosquamous cholangiocarcinoma. Has not yet been seen by medical oncologyhas appointment with Dr. Hammonds to establish this November 29. Per family at bedside, patient more confused in the past few days as well as generally weaker with increased fall risk. Daughter had to feed patient today, which was unusual. Recent medication changes include discontinuation of Aricept and Namenda due to their possible contribution in poor appetite. Also recently started on tramadol for pain control. Continued bilateral rib pain. Denies fever, chills, lightheadedness, near syncope, chest pain, shortness of breath, dysuria, diarrhea or constipation. Admission Exam Per Admitting Provider General Appearance: vitals as above, NAD, sitting up in bed, pleasantly confused Head: normocephalic, atraumatic Eyes: normal inspection, PERRL, conjunctivae normal, + scleral icterus ENT: external ear and nose normal, oropharynx normal Neck: normal visual inspection, trachea midline, no thyromegaly Respiratory: normal respiratory effort, lungs clear to auscultation, no wheeze, rales, rhonchi. No accessory muscle use Cardiovascular: regular rate, rhythm, no murmur, normal peripheral pulses, no BLE edema. Vessels: no JVD Chest: normal inspection of chest Abdomen/GI: normal bowel sounds, soft, TTP in RUQ and LLQ Extremities/Musculoskeletal: no cyanosis or clubbing, extremities motor strength 5/5 Neurologic: PERRL, EOMI, accommodation nl, no face palsy, no dysarthria, CN's II-XI intact bilaterally and moves all extremities Psychiatric: A+Ox person, euthymic affect Skin: no rashes, + jaundice , warm/dry Principal Diagnosis Acute metabolic encephalopathy: Metastatic squamous cell carcinoma: Hyperbilirubinemia: Elevated liver function tests: Sepsis: Hypercalcemia: Generalized weakness: Discharge Exam pt ceased to breath at 1925. no auscultated breath sounds, absent heartbeat. Pupils non-reactive to light. Pt pronounced at 1930. Discharge Data Allergies Allergy/AdvReac Type Severity Reaction Status Date / Time adhesive tape AdvReac Unknown Rash Verified 11/27/20 16:17 Consultations 11/27/20 17:23 ED Decision to Admit Stat 11/27/20 20:06 Consult Gastroenterology Routine 11/28/20 11:11 Consult Palliative Care Routine Ordered Studies 11/27/20 15:30 CT head/brain wo con Stat 11/27/20 18:00 MR MRCP Urgent MR MRCP HISTORY: Hepatic mass. hyperbilirubinemia, eval for obstr TECHNIQUE: MRCP of the abdomen was performed without contrast according to standard departmental protocol. COMPARISON STUDY: Abdomen and pelvis CT 11/13/2020. FINDINGS: Trace right pleural effusion. Multiple hepatic masses are again noted most pronounced within the central liver. Dominant hepatic mass measures 8.6 cm. These demonstrate heterogeneous T2 signal. The main portal vein is mildly compressed but patent. There is moderate intrahepatic bile duct dilatation likely due to compression/involvement of this mass at the confluence of the intrahepatic ducts. The visualized distal common bile duct and main pancreatic duct appear normal in course and caliber. The proximal common bile duct is is not clearly identified. Therefore, these multiple hepatic masses favor a cholangiocarcinoma. Mild perinephric and peripancreatic edema is noted. There few mildly enlarged retroperitoneal lymph nodes. Some of these are partially necrotic. This is consistent with additional sites of metastatic disease. There are few scattered T2 hyperintense lesions within the ribs and spine consistent with metastatic foci. The visualized abdominal aorta and IVC are patent. The adrenal glands are unremarkable. There are few punctate stones within the gallbladder. No hydronephrosis. The spleen is unremarkable. Subcentimeter cystic lesion within the uncinate process of the pancreas favors a side branch IPMN. IMPRESSION: 1. Multiple hepatic masses are again noted with the dominant mass in the central liver measuring 8.6 cm. These lesions compress/invade the central bile ducts resulting in moderate intrahepatic bile duct dilatation. Therefore, these multiple hepatic masses favor a cholangiocarcinoma. Metastatic disease or hepatocellular carcinoma could also have a similar appearance. 2. The previously described distal common bile duct stone is not identified. 3. Trace right pleural effusion. 4. Multiple skeletal metastases are again noted. 5. Cholelithiasis. ACT 112: Negative or not required by law. Electronically signed by: Kendrick Pryor M.D. 11/28/2020 8:30 AM Dictated: 11/28/20 0817Transcribed: 11/28/[address] OF THE HEAD WITHOUT CONTRAST CLINICAL HISTORY: Weakness. History of metastatic disease. COMPARISON STUDY: Head CT and MRI of the brain November 13, 2020. CT DOSE: 638.56 mGycm TECHNIQUE: Helical axial images of the head were obtained without IV contrast. Automated exposure control was utilized for the study. A dose lowering technique was utilized adhering to the principles of ALARA. FINDINGS: No acute intracranial hemorrhage is present. The ventricular system is normal. Basal cisterns are patent. There are no extra axial fluid collections. There are no findings to suggest acute dural sinus thrombosis or acute territorial infarct. Note is again made of a lytic lesion within the inner table of the left frontal bone. This has increased in size since CT of November 13, 2020. The bony defect now measures 2.1 cm. It previously measured 1.3 cm. No additional calvarial lesions are noted. Calvarial thickening is again noted. IMPRESSION: 1. No acute intracranial findings. 2. 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 ACT 112: Negative or not required by law. Electronically signed by: Braden Andersen M.D. 11/27/2020 4:21 PM Dictated: 11/27/20 1614Transcribed: 11/27/20 1617 XR chest 1V portable CLINICAL HISTORY: weakness COMPARISON STUDY: Chest CT November 13, 2020. FINDINGS: Lung volumes are mildly diminished. There is no pneumothorax or pleural effusion. There is no consolidation or evidence for pulmonary edema. Mild cardiomegaly is noted. Lytic skeletal lesions are better depicted on prior chest CT. Minimal left basilar opacity favors atelectasis. IMPRESSION: 1. No acute cardiopulmonary findings. 2. Lytic skeletal metastases better depicted on prior chest CT. ACT 112: Negative or not required by law. Electronically signed by: Braden Andersen M.D. 11/27/2020 4:38 PM Dictated: 11/27/201636Transcribed: 11/27/20 1637 Hospital Course (1) Acute metabolic encephalopathy: 80 yo F with PMH of recent diagnosed metastatic squamous cell carcinoma with liver mass, Alzheimer's, HTN, HLD and other medical problems as a below who presents with worsening confusion. In setting of recently diagnosed metastatic SCC with brain and liver involvement, possible infection, underlying Alzheimer vs possible due to tram adol CT head with no acute intracranial findings. Mild increase in size of the left frontal bone calvarial metastasis since head CT of November 13, 2020 After meeting with oncology, family ready to transition the patient to comfort care only (2) Metastatic squamous cell carcinoma: Recently diagnosed metastatic SCC with brain and liver involvement She was diagnosed with squamous cell carcinoma(FNA of a liver lesion and a lymph node during EUS suggested metastatic squamous cell carcinoma) with mets to the liver and brain. Has appointment with Oncology Dr. Hammonds this November 29 Palliative care consulted for goal of care Patient was transition to comfort care only (3) Hyperbilirubinemia: (4) Elevated liver function tests: Tbili 3.9, AST 375, ALT 579 In setting of known liver mass vs stent occlusion from recent ERCP with stent placement Underwent ERCP on 11/14/2020 - evidence of choledocholithiasis was found with biliary sphincterotomy and balloon extraction as well as stent placement in pancreatic duct MRCP showed multiple hepatic masses are again noted with the dominant mass in the central liver measuring 8.6 cm. These lesions compress/invade the central bile ducts resulting in moderate intrahepatic bile duct dilatation. Therefore, these multiple hepatic masses favor a cholangiocarcinoma. Metastatic disease or hepatocellular carcinoma could also have a similar appearance. The previously described distal common bile duct stone is not identified. Gastro on board and no plan to repeat the ERCP since elevating LFTs appear to be caused more by tumor burden then ductal obstruction. No intervention procedure since pt transition to comfort care (5) Sepsis: Meeting sepsis criteria with tachycardia, leukocytosis of 16 and lactic acid of 2.5, possible GI source Non-toxic appearance, afebrile, BP stable On empiric Zosyn given recent choledocholithiasis with stent placement - continue Continue gentle IV fluids Treatment discontinued (6) Hypercalcemia: Ca elevated at 11.3, now 10.8 Continue IV fluids Obtain ionized Ca in AM (7) Generalized weakness: In setting of metastatic cancer Fall precautions, PT/OT evaluation Need to optimize nutrition-dietitian consulted, boost TIDM, full liquids Dysphagia Nurse said pt choked on her pills speech on board recommended minced and moist diet Aspiration precaution DVT Ppx: SQ heparin Code status: DNR/DNI / Comfort care only PCP: Percy Dispo: Waiting for placement to discharge with hospice Total Time Total Time Spent Total Time Spent (In Minutes): 15 minutes Total Time Includes: Examination of the Patient, Discharge Planning, Medication Reconciliation, Communication With Other Providers and Other Discharge Plan Discharge Items Patient Disposition: Discharge Diagnosis: Acute metabolic encephalopathy: Metastatic squamous cell carcinoma: Hyperbilirubinemia: Elevated liver function tests: Sepsis: Hypercalcemia: Generalized weakness: Addtl Attending Provider Instructions: Discharge on hospice Continue comfort care only Fall an aspiration precaution
== END 2020-12-03 19:25 | disposition expired | DRG 70 ==
LOC: ED 14:27 → 2E 17:57 → SUATTDRO 17:57 → 2E 19:24 → 3E 11-30 09:49